=== PATIENT | female | born 1935 | race Caucasian/White ===

== ENCOUNTER 2018-01-10 08:11 | Day surgery (SDC) | payer MEDICARE, OTHER ==
[~2018-01-10] VITALS: Wt 66.7 kg
[~2018-01-10 08:11] MED LIST: AMLO5 PO; DOCU100; FERSU220EL PO; HYDR1TAB94 PO; LISI20 PO; LOSA50 PO; METR500 PO; MULVITMIND PO; NAPR500; NIFE30ER PO; NITR100 PO; OMEP20ER; OXYACE5T; POLY17UD PO; SULTRIDS PO
== END 2018-01-10 22:42 | disposition home or self-care (01) ==
LOC: ORSCMMR 08:11 → ORD 09:00 → ORSCMMR 09:00
PROVIDERS: Internal Medicine Gastroenterology
PROC: 0DB98ZX Excision of Duodenum, Via Natural or Artificial Opening Endoscopic, Diagnostic (ICD-10-PCS; principal; 2018-01-10 09:00)
PROC: 0DBL8ZX Excision of Transverse Colon, Via Natural or Artificial Opening Endoscopic, Diagnostic (ICD-10-PCS; principal; 2018-01-10 09:00)
PROC: 0DB48ZX Excision of Esophagogastric Junction, Via Natural or Artificial Opening Endoscopic, Diagnostic (ICD-10-PCS; principal; 2018-01-10 09:00)
PROC: 0DBH8ZX Excision of Cecum, Via Natural or Artificial Opening Endoscopic, Diagnostic (ICD-10-PCS; principal; 2018-01-10 09:00)
PROC: 0DB68ZX Excision of Stomach, Via Natural or Artificial Opening Endoscopic, Diagnostic (ICD-10-PCS; principal; 2018-01-10 09:00)
DX: E61.1 Iron deficiency (principal); K44.9 Diaphragmatic hernia without obstruction or gangrene; D12.3 Benign neoplasm of transverse colon; K57.30 Diverticulosis of large intestine without perforation or abscess without bleeding; R19.7 Diarrhea, unspecified; R10.31 Right lower quadrant pain; I10 Essential (primary) hypertension; Z85.038 Personal history of other malignant neoplasm of large intestine; G50.0 Trigeminal neuralgia; Z79.899 Other long term (current) drug therapy
CPT/HCPCS: 87081; J7030

== ENCOUNTER 2018-02-18 20:43 | Emergency (ER) | payer MEDICARE, OTHER ==
[~2018-02-18] VITALS: Ht 154.9 cm; Wt 63.5 kg
[2018-02-18] MEDS ORDERED: Percocet 5-3251 EACH PO (22:09)
== END 2018-02-18 22:21 | disposition home or self-care (01) ==
LOC: ER 20:43
DX: S22.31XA Fracture of one rib, right side, initial encounter for closed fracture (principal); I10 Essential (primary) hypertension; E11.9 Type 2 diabetes mellitus without complications; J44.9 Chronic obstructive pulmonary disease, unspecified; W01.0XXA Fall on same level from slipping, tripping and stumbling without subsequent striking against object, initial encounter; Z79.899 Other long term (current) drug therapy
CPT/HCPCS: 71046; 99283-25

== ENCOUNTER → 2018-12-10 | Outpatient (CLI) | payer MEDICARE, OTHER ==
[~2018-12-10] MED LIST changes: +ALPR.25 PO; +CEPH500; +Hydrocodone-Ap1 EA23 PO; +IMODIUM MULTI-1 EAC1 PO; +Percocet 5-3251 EACH PO
== END | disposition home or self-care (01) ==
LOC: PLD 07:48 → LAB SHORT 07:48
DX: L60.2 Onychogryphosis (principal); B35.1 Tinea unguium
CPT/HCPCS: 88305; 88312

== ENCOUNTER 2020-09-02 02:17 | Inpatient (IN) | payer MEDICARE, OTHER ==
[~2020-09-02] VITALS: Ht 167.6 cm; Wt 67.8 kg
[2020-09-02 02:32] LABS: PCO2 Arterial 49.7 mmHg (35-45); PO2 Arterial 101 mmHg (80-100); pH Blood Arterial 7.21 (7.35-7.45)
[2020-09-02 02:46] LABS: BASOPHILS ABSOLUTE AUTO 0.06 K/mm3 (0.00-0.23); BASOPHILS PERCENT AUTO 1 % (0-2); EOSINOPHILS ABSOLUTE AUTO 0.36 K/mm3 (0.00-0.68); EOSINOPHILS PERCENT AUTO 3 % (0-6); Hematocrit 49.6 % (33.0-51.0); Hemoglobin 16.4 g/dL (11.5-16.0); IMMATURE GRAN ABSOLUTE AUTO 0.06 K/mm3 (0.00-0.10); IMMATURE GRAN PERCENT AUTO 1 % (0-1); LYMPHOCYTES ABSOLUTE AUTO 3.84 K/mm3 (0.84-5.20); LYMPHOCYTES PERCENT AUTO 29 % (21-46); MONOCYTES ABSOLUTE AUTO 0.78 K/mm3 (0.16-1.47); MONOCYTES PERCENT AUTO 6 % (4-13); Mean Corpuscular HGB 31.2 pg (26.0-34.0); Mean Corpuscular HGB Conc 33.1 g/dL (31.5-36.5); Mean Corpuscular Volume 95 fL (80-100); Mean Platelet Volume 10.8 fL (9.1-12.4); NEUTROPHILS ABSOLUTE AUTO 8.11 K/mm3 (1.96-9.15); NEUTROPHILS PERCENT AUTO 61 % (41-73); Platelet Count 233 K/mm3 (150-400); RDW Standard Deviation 45.4 fL (35.1-46.3); Red Blood Cell Count 5.25 M/mm3 (3.80-5.20); White Blood Cell Count 13.21 K/mm3 (4.00-11.30)
[2020-09-02 03:08] LABS: Troponin I 0.101 ng/mL (0.000-0.040)
[2020-09-02 03:15] LABS: Alanine Aminotransfer (ALT/SGP 36 U/L (12-78); Albumin, Blood 3.6 g/dL (3.4-5.0); Albumin/Globulin Ratio 0.9 (0.8-1.8); Alk Phos 80 U/L (50-136); Anion Gap 8 mmol/L (6-16); Aspartate Aminotrans (AST/SGOT 78 U/L (12-37); Bilirubin, Total 1.1 mg/dL (0.1-1.0); Blood Urea Nitrogen 30 mg/dL (8-24); Bun/Creatinine Ratio 52.4 (12.0-20.0); CO2, Blood 20 mmol/L (21-32); Calcium, Blood 8.5 mg/dL (8.5-10.1); Chloride, Blood 102 mmol/L (98-108); Creatinine, Blood 0.57 mg/dL (0.40-1.00); Globulin, Blood 4.2 g/dL (2.2-4.0); Glomerular Filtration Rate >60 (60-); Glucose, Blood 232 mg/dL (70-99); Potassium, Blood 5.1 mmol/L (3.5-5.5); Sodium, Blood 130 mmol/L (136-145); Total Protein, Blood 7.8 g/dL (6.4-8.2)
[2020-09-02] MEDS ORDERED: LOPE2C PO (03:17)
[2020-09-02] MEDS ORDERED: ALPR.25 PO (03:17)
[2020-09-02] MEDS ORDERED: AMLO5 PO (03:17)
[2020-09-02] MEDS ORDERED: VIT1CAPS12 (03:19)
[2020-09-02] MEDS ORDERED: CHOLP PO (03:19)
[2020-09-02] MEDS ORDERED: OLME20 PO (03:19)
[2020-09-02] MEDS ORDERED: Vitamin B-121000 MCG PO (03:20)
[2020-09-02] MEDS ORDERED: ACET325 PO (03:21)
[2020-09-02 03:24] LABS: Influenza A, PCR Negative (NEGATIVE); Influenza B, PCR Negative (NEGATIVE); Resp Syncytial Virus, PCR Negative (NEGATIVE); SARS-Cov-2 (COVID-19) PCR, MMC Negative (NEGATIVE)
[2020-09-02 03:54] LABS: Source, Urine Catheter
[2020-09-02 04:00] LABS: Appearance, Urine Hazy (Clear); Bilirubin, Urine Neg (Neg); Blood, Urine 5+ (Neg); Color, Urine Amber (P-Yellow); Glucose Qualitative, Urine Neg (Neg); Ketones, Urine 1+ (Neg); Leukocyte Esterase, Urine 1+ (Neg); Nitrite, Urine Neg (Neg); Protein, Urine 4+ (Neg); Specific Gravity, Urine 1.025 (1.003-1.022); Urobilinogen, Urine NORM (Normal); pH, Urine 6.5 (5.0-8.0)
[2020-09-02 04:07] LABS: Red Blood Cells, Urine 0-2 /hpf (0-2); White Blood Cells, Urine 0-2 /hpf (0-5)
[2020-09-02 04:08] LABS: Amorphous Heavy (0-Heavy); Bacteria Few /hpf; Hyaline Casts 0-2 /lpf (0-2); Squamous Epithelial Cells Not Seen /hpf (Few)
--- NOTE | 2020-09-02 04:30 | NUR ---
ASSUMPTION OF CARE RECEIVED REPORT FROM IQRA FULLER FROM ED. PATIENT ARRIVED VIA GURNEY, 4 PERSON ASSISTED TO BED. BIPAP IN PLACE SETTING 07/05, FIO2 85%. SATS GREATER THAN 95%. PATIENT A/O, CONCERNED WITH BIPAP MASK NOT FITTING PROPERLY. RT ADJUSTED, PATIENT ALSO CONCERNED THAT SHE WASN'T RECEIVING ENOUGH AIR. READJUSTED MASK A FEW TIMES AND COACHED PATIENT TO BREATH NORMAL. PATIENT SOON BEGAN TO RELAX AND BREATH WITH BIPAP. SON TO BEDSIDE, EDUCATED ON VISITOR POLICY, SON VERBALIZED UNDERSTANDING. ORIENTED PATIENT TO ROOM AND CALL LIGHT, CALL LIGHT WITHIN REACH. WILL REVIEW ORDERS AND TREAT PRESCRIBED.
--- NOTE | 2020-09-02 06:17 | NUR ---
SHIFT SUMMARY PATIENT REMAINS ON BIPAP, SETTINGS 12/6 FIO2 DECREASED TO 75% WITH O2 SATS GREATER THAN 95%. PATIENT TOLERATING WELL. BLOOD PRESSURE STABLE. CALL LIGHT IN REACH.
[2020-09-02] MEDS ORDERED: SYSTANE BALANCE10 ML BOTHEYES (06:37)
[2020-09-02] MEDS ORDERED: VITAMIN D31000 UNI1 PO (06:38)
[2020-09-02] MEDS ORDERED: VIT1CAPS12 PO (06:38)
--- NOTE | 2020-09-02 07:30 | NUR ---
PT RECEIVED FROM JONNY MAYERS. PT SITTING IN BED ON BIPAP, MASK SLIGHTLY ASKEW. ADJUSTED,TOLERATING WITH A BIT OF ANXIETY, ENCOURAGED TO BREATHE NORMALLY. ORAL CARE DONE WITH OXYGEN VIA NASAL CANNULA, SATS DROPPED TO 90%, WORK OF BREATHING INCREASED AND TACHYPNIC. RETURNED TO BIPAP. SATS RETURN TO >95%. WILL WORK WITH PATIENT AND PHYSICIANS FOR CARE TODAY.
[2020-09-02 10:36] LABS: BASOPHILS ABSOLUTE AUTO 0.02 K/mm3 (0.00-0.23); BASOPHILS PERCENT AUTO 0 % (0-2); EOSINOPHILS PERCENT AUTO 0 % (0-6); Hematocrit 47.1 % (33.0-51.0); Hemoglobin 15.9 g/dL (11.5-16.0); IMMATURE GRAN ABSOLUTE AUTO 0.05 K/mm3 (0.00-0.10); IMMATURE GRAN PERCENT AUTO 0 % (0-1); LYMPHOCYTES ABSOLUTE AUTO 0.29 K/mm3 (0.84-5.20); LYMPHOCYTES PERCENT AUTO 2 % (21-46); MONOCYTES ABSOLUTE AUTO 0.34 K/mm3 (0.16-1.47); MONOCYTES PERCENT AUTO 2 % (4-13); Mean Corpuscular HGB 31.5 pg (26.0-34.0); Mean Corpuscular HGB Conc 33.8 g/dL (31.5-36.5); Mean Corpuscular Volume 94 fL (80-100); Mean Platelet Volume 10.3 fL (9.1-12.4); NEUTROPHILS ABSOLUTE AUTO 14.89 K/mm3 (1.96-9.15); NEUTROPHILS PERCENT AUTO 96 % (41-73); Platelet Count 226 K/mm3 (150-400); RDW Standard Deviation 44.2 fL (35.1-46.3); Red Blood Cell Count 5.04 M/mm3 (3.80-5.20); White Blood Cell Count 15.59 K/mm3 (4.00-11.30)
[2020-09-02 10:53] LABS: Alanine Aminotransfer (ALT/SGP 37 U/L (12-78); Albumin, Blood 3.4 g/dL (3.4-5.0); Albumin/Globulin Ratio 0.9 (0.8-1.8); Alk Phos 70 U/L (50-136); Anion Gap 15 mmol/L (6-16); Aspartate Aminotrans (AST/SGOT 65 U/L (12-37); Bilirubin, Total 1.3 mg/dL (0.1-1.0); Blood Urea Nitrogen 28 mg/dL (8-24); Bun/Creatinine Ratio 39.5 (12.0-20.0); CO2, Blood 20 mmol/L (21-32); Calcium, Blood 8.4 mg/dL (8.5-10.1); Chloride, Blood 102 mmol/L (98-108); Creatinine, Blood 0.71 mg/dL (0.40-1.00); Globulin, Blood 3.7 g/dL (2.2-4.0); Glomerular Filtration Rate >60 (60-); Glucose, Blood 177 mg/dL (70-99); Potassium, Blood 3.6 mmol/L (3.5-5.5); Sodium, Blood 137 mmol/L (136-145); Total Protein, Blood 7.1 g/dL (6.4-8.2); Troponin I 0.225 ng/mL (0.000-0.040)
--- NOTE | 2020-09-02 12:29 | NUR ---
Echocardiogram performed by Kera Baldwin under my supervision.
[2020-09-02 14:49] LABS: PCO2 Arterial 28.5 mmHg (35-45); PO2 Arterial 112 mmHg (80-100); pH Blood Arterial 7.43 (7.35-7.45)
--- NOTE | 2020-09-02 15:33 | NUR ---
IN TO SPEAK WITH PATIENT AND SON. SHE WAS IN EARLIER AND ORDERED AN ABG,BLOOD CULTURES AND ANTIBIOTICS. WILL BE HEADED TO CT FOR CHEST VIEW MOMENTARILY. IN CONSULT.
--- NOTE | 2020-09-02 16:17 | NUR ---
IN WITH PATIENT WE RETURN FROM CT. PT DOING REALLY WELL, MOVING TO 2L/NC. SON IN THE ROOM,PATIENT ABLE TO ASK QUESTIONS AND DISCUSS CONCERNS.
--- NOTE | 2020-09-02 18:12 | NUR ---
HAS DONE REALLY WELL THIS SHIFT. SHE WAS PLACED ON NASAL CANNULA AROUND 1500 TODAY @ 3L FOR SATS >95% BEING TITRATED DOWN SINCE NOON WITH RESP. THERAPY. SHE HAS ASKED APPROPRIATE QUESTIONS AND HAD A DINNER TRAY WITHOUT ANY PROBLEMS. HER SON HAS BEEN WITH HER MOST OF THE AFTERNOON, SHE TOLERATED ABG, BLOOD CULTURES AND CT OF THE CHEST WITHOUT ANY PROBLEMS. SHE IS SCHEDULED TO RECEIVE ANTIBIOTICS LATER TONIGHT AND ENCOURAGED TO GET OUT OF BED AND MOVE TO THE CHAIR. WILL REPORT TO NEXT SHIFT WHEN AVAILABLE.
[2020-09-02 20:08] LABS: Troponin I 0.164 ng/mL (0.000-0.040)
[2020-09-02 20:22] LABS: Creatine Kinase MB 5.9 ng/mL (0.0-3.6)
--- NOTE | 2020-09-03 | NUR ---
REASSESSMENT NO ACUTE CHANGES FROM INITIAL ASSESSMENT. PATIENT WITH EYES CLOSED, EASILY AWAKENS. DENIED DISCOMFORTS OR NEEDS. VITALS STABLE. MEDICATED ORDERED. CALL LIGHT IN REACH.
[2020-09-03 03:50] LABS: BASOPHILS ABSOLUTE AUTO 0.01 K/mm3 (0.00-0.23); BASOPHILS PERCENT AUTO 0 % (0-2); EOSINOPHILS ABSOLUTE AUTO 0.03 K/mm3 (0.00-0.68); EOSINOPHILS PERCENT AUTO 0 % (0-6); Hematocrit 40.5 % (33.0-51.0); Hemoglobin 13.5 g/dL (11.5-16.0); IMMATURE GRAN ABSOLUTE AUTO 0.03 K/mm3 (0.00-0.10); IMMATURE GRAN PERCENT AUTO 0 % (0-1); LYMPHOCYTES ABSOLUTE AUTO 1.13 K/mm3 (0.84-5.20); LYMPHOCYTES PERCENT AUTO 8 % (21-46); MONOCYTES ABSOLUTE AUTO 0.93 K/mm3 (0.16-1.47); MONOCYTES PERCENT AUTO 7 % (4-13); Mean Corpuscular HGB 31.1 pg (26.0-34.0); Mean Corpuscular HGB Conc 33.3 g/dL (31.5-36.5); Mean Corpuscular Volume 93 fL (80-100); Mean Platelet Volume 10.5 fL (9.1-12.4); NEUTROPHILS ABSOLUTE AUTO 11.54 K/mm3 (1.96-9.15); NEUTROPHILS PERCENT AUTO 84 % (41-73); Platelet Count 198 K/mm3 (150-400); RDW Coefficient Variation 13.2 % (11.7-14.2); RDW Standard Deviation 45.4 fL (35.1-46.3); Red Blood Cell Count 4.34 M/mm3 (3.80-5.20); White Blood Cell Count 13.67 K/mm3 (4.00-11.30)
--- NOTE | 2020-09-03 04:00 | NUR ---
REASSESSMENT NO ACUTE CHANGES FROM PREVIOUS ASSESSMENT. PATIENT DENIES NEEDS OR DISCOMFORTS. VITALS STABLE, 2L [address]ACE WITH SATS AT 94-95%. TOBIAS CATHETER DRAINING CLEAR, YELLOW URINE. CALL LIGHT IN REACH.
[2020-09-03 04:10] LABS: Anion Gap 7 mmol/L (6-16); Blood Urea Nitrogen 36 mg/dL (8-24); Bun/Creatinine Ratio 42.4 (12.0-20.0); CO2, Blood 25 mmol/L (21-32); Calcium, Blood 8.2 mg/dL (8.5-10.1); Chloride, Blood 105 mmol/L (98-108); Creatinine, Blood 0.85 mg/dL (0.40-1.00); Glomerular Filtration Rate >60 (60-); Glucose, Blood 110 mg/dL (70-99); Sodium, Blood 137 mmol/L (136-145)
--- NOTE | 2020-09-03 06:06 | NUR ---
SHIFT SUMMARY PATIENT RESTED COMFORTABLY THROUGH NIGHT. NO S/S OF DISTRESS. REMAINED ON 2L O2 VIA NC WITH STABLE VITALS. TOBIAS CATHETER REMAINED PATENT AND DRAINED CLEAR YELLOW URINE. NO ACUTE CHANGES THROUGH NIGHT. WILL CONTINUE TO MONITOR AND REPORT TO ONCOMING RN.
--- NOTE | 2020-09-03 09:20 | NUR ---
CARE ASSUMED OF PT AT 0700. PT AWAKE RESTING IN BED W/O COMPLAINTS. PT ASSISTED TO CHAIR FOR BREAKFAST. SATS >90% ON 2L O2 VIA N/C. PT HYPOTENSIVE W MAP >65. LASIX GIVEN PER DR STOCKTON. HTN MEDS HELD D/T LOW BP; DR STOCKTON NOTIFIED. WILL RE-EVALUATE LATER TODAY. DR STOCKTON IN TO SEE PT THIS AM; PT NOW MED FLOOR STATUS.
--- NOTE | 2020-09-03 10:27 | NUR ---
O2 REMOVED. SATS 93% ON RA. WILL CONT TO MONITOR. PT'S SON GIVEN UPDATE W PT'S APPROVAL.
--- NOTE | 2020-09-03 14:17 | NUR ---
CARE COORDINATION REFERRAL - ADMIT: 09/02/20 DISCHARGE: DX: SOB, ACUTE DIASTOLIC HEART DISEASE CC: KWILCOX ALICIA CALL: RESIDENCE: [facility] CAREGIVER: DORINDA MARI AND GWEN BEY AND DARIAN TRAORE, CHILD, BALAJI BEY, CHILD, ALBAN GUERRA, CHILD, DX: AORTIC STENOSIS, HTN, COLON CANCER, SEE LIST DME: NONE CCM: REFERRAL- 04/02/20 [facility] - [facility] SUMMARY: 09/03/20- PER CHART REVIEW, PT HAS BEEN TAKEN OFF BIPAP AND IS DOING WELL ON 2L OXYGEN. PT WILL BE MOVED TO MEDICAL FLOOR. NO EST ETA FOR D/C AT THIS TIME. -CLIFFORD
--- NOTE | 2020-09-03 14:36 | NUR ---
PT TRANSFERED TO ROOM 309 IN STABLE CONDITION.
--- NOTE | 2020-09-03 17:03 | NUR ---
Attempted to meet with pt, she was using the restroom. Will come back. -lubna
--- NOTE | 2020-09-03 18:54 | NUR ---
Shift Summary Received report from Traci ICU-RN. Patient arrived to unit @ 1400 via bed. A/Ox3, pleasant and cooperative. SBA c FWW to BS. Luz catheter still patent and draining clear yellow fluids. Patient denies pain. Updated daughter on patient status. Plan is to discharge back to [facility] tomorrow. On RA, denies shortness of breath, nausea, diarrhea. Refused Cholestyramine tonight. No acute changes, WCTM and report to oncoming RN.
--- NOTE | 2020-09-04 03:45 | NUR ---
PATIENT HAD DIFFICULTY GETTING COMFORTABLE OVERNIGHT. CHRONIC BACK PAIN RESPONDED WELL TO TYLENOL AND A K PAD. BP AT HS WAS 131/80, SO BEDTIME DOSE OF IV LASIX WAS GIVEN WITH GOOD RESULT. COLETTE IS ALERT, ORIENTED AND VERY PLEASANT TO WORK WITH. VERY MOTIVATED TO GO HOME.
[2020-09-04 05:18] LABS: Hematocrit 40.3 % (33.0-51.0); Hemoglobin 13.2 g/dL (11.5-16.0); Mean Corpuscular HGB 30.5 pg (26.0-34.0); Mean Corpuscular HGB Conc 32.8 g/dL (31.5-36.5); Mean Corpuscular Volume 93 fL (80-100); Mean Platelet Volume 10.9 fL (9.1-12.4); Platelet Count 206 K/mm3 (150-400); RDW Coefficient Variation 13.2 % (11.7-14.2); RDW Standard Deviation 45.4 fL (35.1-46.3); Red Blood Cell Count 4.33 M/mm3 (3.80-5.20)
[2020-09-04 05:47] LABS: Anion Gap 8 mmol/L (6-16); Blood Urea Nitrogen 40 mg/dL (8-24); CO2, Blood 24 mmol/L (21-32); Calcium, Blood 8.4 mg/dL (8.5-10.1); Chloride, Blood 104 mmol/L (98-108); Creatinine, Blood 0.76 mg/dL (0.40-1.00); Glomerular Filtration Rate >60 (60-); Glucose, Blood 103 mg/dL (70-99); Potassium, Blood 3.9 mmol/L (3.5-5.5); Sodium, Blood 136 mmol/L (136-145)
[2020-09-04] MEDS ORDERED: Lopressor 25 mg25 MG PO (18:31)
[2020-09-04] MEDS ORDERED: OLME20 PO (19:01)
--- NOTE | 2020-09-04 19:23 | NUR ---
PT WAS DISCHARGED HOME WITH BELONGINGS AND FAMILY AT SIDE. PT IV'S WERE DC'S AND WITHIN NORMAL LIMITS. PATIENT MADE NO COMPLAINT OF PAIN, DIZZINESS OR SOB AT THE TIME OF DC. PT WAS EDUCATED ON FOLLOW UP APPOINTMENTS NEEDED AFTER DISCHARGE AN DMEDICATION CHANGES NEEDED.
== END 2020-09-04 19:31 | disposition home or self-care (01) | DRG 280 ==
LOC: ER 02:17 → MEDS 03:44 → ICUW 03:44 → MEDS 09-03 14:00
PROVIDERS: Emergency Medicine; Family Medicine; Internal Medicine Critical Care Medicine; Student in an Organized Health Care Education/Training Program; ADMIT Internal Medicine
DX: I11.0 Hypertensive heart disease with heart failure (principal); I50.31 Acute diastolic (congestive) heart failure; I21.A1 Myocardial infarction type 2; J96.01 Acute respiratory failure with hypoxia; J81.0 Acute pulmonary edema; I16.1 Hypertensive emergency; R65.10 Systemic inflammatory response syndrome (SIRS) of non-infectious origin without acute organ dysfunction; I08.0 Rheumatic disorders of both mitral and aortic valves; Z20.822 Contact with and (suspected) exposure to COVID-19
CPT/HCPCS: 0241U; 36415; 36600; 51702; 71045; 71250; 80048; 80053; 81001; 82550; 82553; 82803; 83880; 84484; 85025; 85027; 87040; 87086; 93005; 93010; 93308; 93321; 94644; 94660; 96365-59; 96367-59; 96368; 96375-59; 97116; 97161; 97165; 97530; 99285-25; A9270; J0456; J0696; J1100; J1650; J1940; J7050

== ENCOUNTER 2020-09-07 20:53 | Inpatient (IN) | payer MEDICARE, OTHER ==
[~2020-09-07] VITALS: Ht 154.9 cm; Wt 66.6 kg
[~2020-09-07 20:53] MED LIST changes: +ACET325 PO; +CHOLP PO; +LOPE2C PO; +Lopressor 25 mg25 MG PO; +OLME20 PO; +SYSTANE BALANCE10 ML BOTHEYES; +VIT1CAPS12; +VIT1CAPS12 PO; +VITAMIN D31000 UNI1 PO; +Vitamin B-121000 MCG PO
[2020-09-07 21:15] LABS: Calcium, Ionized (POC) 1.13 mmol/L (1.10-1.46); Chloride (POC) 102 mmol/L (98-108); Creatinine (POC) 0.7 mg/dL (0.6-1.0); Glucose (ISTAT POC) 147 mg/dL (70-99); Hemoglobin (POC) 14.6 g/dL (12.0-16.0); Potassium (POC) 4.4 mmol/L (3.5-5.5); Sodium (POC) 133 mmol/L (135-148); Total CO2 (POC) 23 mmol/L (21-32)
[2020-09-07 21:17] LABS: BASOPHILS ABSOLUTE AUTO 0.04 K/mm3 (0.00-0.23); BASOPHILS PERCENT AUTO 1 % (0-2); EOSINOPHILS ABSOLUTE AUTO 0.32 K/mm3 (0.00-0.68); EOSINOPHILS PERCENT AUTO 4 % (0-6); Hematocrit 42.2 % (33.0-51.0); Hemoglobin 13.8 g/dL (11.5-16.0); IMMATURE GRAN ABSOLUTE AUTO 0.04 K/mm3 (0.00-0.10); IMMATURE GRAN PERCENT AUTO 1 % (0-1); LYMPHOCYTES ABSOLUTE AUTO 1.33 K/mm3 (0.84-5.20); LYMPHOCYTES PERCENT AUTO 17 % (21-46); MONOCYTES ABSOLUTE AUTO 0.75 K/mm3 (0.16-1.47); MONOCYTES PERCENT AUTO 10 % (4-13); Mean Corpuscular HGB 30.7 pg (26.0-34.0); Mean Corpuscular HGB Conc 32.7 g/dL (31.5-36.5); Mean Corpuscular Volume 94 fL (80-100); Mean Platelet Volume 10.3 fL (9.1-12.4); NEUTROPHILS ABSOLUTE AUTO 5.44 K/mm3 (1.96-9.15); NEUTROPHILS PERCENT AUTO 69 % (41-73); Platelet Count 255 K/mm3 (150-400); RDW Standard Deviation 44.8 fL (35.1-46.3); Red Blood Cell Count 4.49 M/mm3 (3.80-5.20); White Blood Cell Count 7.92 K/mm3 (4.00-11.30)
[2020-09-07 21:41] LABS: Alanine Aminotransfer (ALT/SGP 43 U/L (12-78); Albumin, Blood 3.5 g/dL (3.4-5.0); Albumin/Globulin Ratio 0.9 (0.8-1.8); Alk Phos 65 U/L (50-136); Anion Gap 7 mmol/L (6-16); Aspartate Aminotrans (AST/SGOT 29 U/L (12-37); Bilirubin, Total 0.5 mg/dL (0.1-1.0); Blood Urea Nitrogen 22 mg/dL (8-24); Bun/Creatinine Ratio 29.9 (12.0-20.0); CO2, Blood 23 mmol/L (21-32); Calcium, Blood 8.5 mg/dL (8.5-10.1); Chloride, Blood 105 mmol/L (98-108); Creatinine, Blood 0.74 mg/dL (0.40-1.00); Globulin, Blood 3.7 g/dL (2.2-4.0); Glomerular Filtration Rate >60 (60-); Glucose, Blood 145 mg/dL (70-99); Potassium, Blood 4.3 mmol/L (3.5-5.5); Sodium, Blood 135 mmol/L (136-145); Total Protein, Blood 7.2 g/dL (6.4-8.2); Troponin I 0.025 ng/mL (0.000-0.040)
[2020-09-07 21:44] LABS: PCO2 Arterial 33.8 mmHg (35-45); PO2 Arterial 69.2 mmHg (80-100); pH Blood Arterial 7.39 (7.35-7.45)
[2020-09-07] MEDS ORDERED: METO25 PO (23:05)
[2020-09-07 23:08] LABS: Source, Urine Catheter
[2020-09-07 23:17] LABS: Bilirubin, Urine Neg (Neg); Blood, Urine 3+ (Neg); Glucose Qualitative, Urine Neg (Neg); Ketones, Urine Neg (Neg); Leukocyte Esterase, Urine Neg (Neg); Nitrite, Urine Neg (Neg); Protein, Urine 2+ (Neg); Specific Gravity, Urine 1.025 (1.003-1.022); Urobilinogen, Urine NORM (Normal)
[2020-09-07 23:23] LABS: Appearance, Urine Clear (Clear); Color, Urine Yellow (P-Yellow)
[2020-09-07 23:24] LABS: Bacteria Few /hpf; Hyaline Casts 0-2 /lpf (0-2); Red Blood Cells, Urine 0-2 /hpf (0-2); Squamous Epithelial Cells Not Seen /hpf (Few); White Blood Cells, Urine 0-2 /hpf (0-5)
[2020-09-08 03:28] LABS: BASOPHILS ABSOLUTE AUTO 0.04 K/mm3 (0.00-0.23); BASOPHILS PERCENT AUTO 1 % (0-2); EOSINOPHILS ABSOLUTE AUTO 0.22 K/mm3 (0.00-0.68); EOSINOPHILS PERCENT AUTO 3 % (0-6); Hemoglobin 12.5 g/dL (11.5-16.0); IMMATURE GRAN ABSOLUTE AUTO 0.02 K/mm3 (0.00-0.10); IMMATURE GRAN PERCENT AUTO 0 % (0-1); LYMPHOCYTES ABSOLUTE AUTO 1.33 K/mm3 (0.84-5.20); LYMPHOCYTES PERCENT AUTO 19 % (21-46); MONOCYTES ABSOLUTE AUTO 0.65 K/mm3 (0.16-1.47); MONOCYTES PERCENT AUTO 9 % (4-13); Mean Corpuscular HGB 30.3 pg (26.0-34.0); Mean Corpuscular HGB Conc 32.1 g/dL (31.5-36.5); Mean Corpuscular Volume 95 fL (80-100); Mean Platelet Volume 10.4 fL (9.1-12.4); NEUTROPHILS ABSOLUTE AUTO 4.62 K/mm3 (1.96-9.15); NEUTROPHILS PERCENT AUTO 67 % (41-73); Platelet Count 219 K/mm3 (150-400); RDW Standard Deviation 45.1 fL (35.1-46.3); Red Blood Cell Count 4.12 M/mm3 (3.80-5.20); White Blood Cell Count 6.88 K/mm3 (4.00-11.30)
[2020-09-08 03:46] LABS: Anion Gap 6 mmol/L (6-16); Blood Urea Nitrogen 23 mg/dL (8-24); Bun/Creatinine Ratio 30.5 (12.0-20.0); CO2, Blood 25 mmol/L (21-32); Calcium, Blood 8.4 mg/dL (8.5-10.1); Chloride, Blood 107 mmol/L (98-108); Creatinine, Blood 0.75 mg/dL (0.40-1.00); Glomerular Filtration Rate >60 (60-); Glucose, Blood 115 mg/dL (70-99); Potassium, Blood 4.5 mmol/L (3.5-5.5); Sodium, Blood 138 mmol/L (136-145); Troponin I 0.245 ng/mL (0.000-0.040)
--- NOTE | 2020-09-08 14:33 | NUR ---
CARE COORDINATION REFERRAL - ADMIT: 09/07/20 DISCHARGE: DX: ACUTE RESP. FAILURE W/ HYPOXIA CC: KWILCOX ADMIT: 09/02/20 DISCHARGE:09/04/20 DX: SOB, ACUTE DIASTOLIC HEART DISEASE ALICIA CALL: [facility] RESIDENCE: [facility] CAREGIVER: DORINDA GUERRA AND GWEN SOTERO AND DARIAN TRAORE, CHILD, BALAJI BEY, CHILD, ALBAN GUERRA, CHILD, DX: AORTIC STENOSIS, HTN, CERVICAL RADICULOPATHY, SEE LIST DME: NONE CCM: REFERRAL- 04/02/20 HOME HEALTH: [facility] - 2017 SUMMARY: ADMIT: 09/07/20 09/08/20- PER CHART REVIEW WITH DR. VALENZUELA, PT IS GETTING LASIX TO HELP RID HER OF EXCESS FLUID. SHE HAS BEEN PLACED ON A CARDIAC DIET AND WILL BE MOVED FROM ER HOLD/ICU TO MED/TELE. -CLIFFORD
--- NOTE | 2020-09-08 17:49 | NUR ---
ADMISSION AND SHIFT SUMMARY PT ARRIVED TO UNIT @ APPROX 1620 BY GURNEY TO ROOM 342. PT WAS ABLE TO STAND AND AMBULATE TO THE BED WITH MINIMAL ASSISTANCE. PT IS ON 2 L/MIN O2 VIA NC, THIS IS NOT BASELINE FOR PT. NO COMPLAINTS OF PAIN OR DISTRESS @ THIS TIME. SKIN APPEARS INTACT. TOBIAS IN PLACE PATENT AND DRAINING CLEAR YELLOW URINE. DAUGHTER IS @ BEDSIDE. ADMISSION PROCESS COMPLETED. PT AND FAMILY EDUCATED REGARDING CALL SYSTEM.
[2020-09-09 05:18] LABS: BASOPHILS ABSOLUTE AUTO 0.02 K/mm3 (0.00-0.23); BASOPHILS PERCENT AUTO 0 % (0-2); EOSINOPHILS ABSOLUTE AUTO 0.26 K/mm3 (0.00-0.68); EOSINOPHILS PERCENT AUTO 4 % (0-6); Hematocrit 39.6 % (33.0-51.0); Hemoglobin 12.9 g/dL (11.5-16.0); IMMATURE GRAN ABSOLUTE AUTO 0.03 K/mm3 (0.00-0.10); IMMATURE GRAN PERCENT AUTO 1 % (0-1); LYMPHOCYTES ABSOLUTE AUTO 1.42 K/mm3 (0.84-5.20); LYMPHOCYTES PERCENT AUTO 23 % (21-46); MONOCYTES ABSOLUTE AUTO 0.66 K/mm3 (0.16-1.47); MONOCYTES PERCENT AUTO 11 % (4-13); Mean Corpuscular HGB 30.6 pg (26.0-34.0); Mean Corpuscular HGB Conc 32.6 g/dL (31.5-36.5); Mean Corpuscular Volume 94 fL (80-100); Mean Platelet Volume 10.4 fL (9.1-12.4); NEUTROPHILS ABSOLUTE AUTO 3.85 K/mm3 (1.96-9.15); NEUTROPHILS PERCENT AUTO 62 % (41-73); Platelet Count 233 K/mm3 (150-400); RDW Coefficient Variation 13.1 % (11.7-14.2); RDW Standard Deviation 44.9 fL (35.1-46.3); Red Blood Cell Count 4.21 M/mm3 (3.80-5.20); White Blood Cell Count 6.24 K/mm3 (4.00-11.30)
[2020-09-09 05:42] LABS: Alanine Aminotransfer (ALT/SGP 38 U/L (12-78); Albumin/Globulin Ratio 0.9 (0.8-1.8); Alk Phos 58 U/L (50-136); Anion Gap 7 mmol/L (6-16); Aspartate Aminotrans (AST/SGOT 29 U/L (12-37); Bilirubin, Total 0.7 mg/dL (0.1-1.0); Blood Urea Nitrogen 20 mg/dL (8-24); Bun/Creatinine Ratio 31.2 (12.0-20.0); CO2, Blood 23 mmol/L (21-32); Calcium, Blood 8.5 mg/dL (8.5-10.1); Chloride, Blood 107 mmol/L (98-108); Creatinine, Blood 0.64 mg/dL (0.40-1.00); Globulin, Blood 3.2 g/dL (2.2-4.0); Glomerular Filtration Rate >60 (60-); Glucose, Blood 94 mg/dL (70-99); Magnesium, Blood 2.2 mg/dL (1.6-2.4); Phosphorus, Blood 2.9 mg/dL (2.5-4.9); Potassium, Blood 4.3 mmol/L (3.5-5.5); Sodium, Blood 137 mmol/L (136-145); Total Protein, Blood 6.2 g/dL (6.4-8.2)
--- NOTE | 2020-09-09 06:07 | NUR ---
PT AWOKE MOMENTARILY AGO W/COMPLAINT OF NEEDING XANAX FOR INABILTY TO SLEEP. SHE'S PREVIOUSLY APPEARED ASLEEP DURING PT ROUNDING BUT PERHAPS SHE WAS JUST RESTING EYES. I JUST WENT TO OFFER PT PRN XANAX THOUGH BUT SHE WAS FAST ASLEEP AND REMAINED SO W/ATTEMPT TO WAKE HER. WILL REEVALUATE AND LET HER REST.
--- NOTE | 2020-09-09 06:45 | NUR ---
SUMMARY: A/OX4, CALLS APPROPRIATELY AND PLEASANT/COOPERATIVE W/CARE. SHE'S SBA W/FWW TO TOILET AND HAS TOBIAS PATENT/DRAINING. PT HAS CHRONIC DIARRHEA R/T HX COLON CANCER. PT REPORTS BUTTOCKS FEELING RAW BUT NO EXCORIATION OR SBD OBSERVED. BARRIER CREAM APPLIDE FOR SKIN PROTECTION AND IMPROVED COMFORT. LS CLEAR AND SPO2 WNL ON RA. VERY MILD SOB OBSERVED W/EXERTION BUT RECOVERS AT REST. SHE'S DENIED ALL COMPLAINTS T/O NOCTE BUT ALERTED STAFF AT 0500 OF NEED FOR XANAX FOR DIFFICULTY SLEEPING. SHE APPEARED ASLEEP DURING ROUNDING BUT ADMITTED SHE SHOULD'VE REQUESTED MED AT HS RX'D. WILL DISCUSS GETTING MED FREQUENCY CHANGED SO SHE COULD POSSIBLY RECIEVE IT DURING DAYTIME PRN WELL. NO ACUTE CHANGES, VSS/AFEBRILE. WCTM AND REPORT TO DAY RN. EARLIER IN SHIFT AND WAS WILL DISCUSS GETTING PRN XANAX ORDERED CHANGED.
--- NOTE | 2020-09-09 16:55 | NUR ---
SHIFT SUMMARY NO ACUTE CHANGES T/O SHIFT, A&Ox4, CALM AND COOPERATIVE T/O SHIFT. VITALS REMAIN STABLE T/O SHIFT, PT DENIES SOB. PT WAS TAKEN OFF O2 AFTER HOME O2 EVAL WAS COMPLETED. PT DOES NOT QUALIFY FOR HOME O2 BECAUSE SHE REMAINED ABOVE 90% DURING EXERTION ON RA. PT IS SATING 95% ON RA CURRENTLY. PT COMPLAINED OF OCCASIONAL COUGH T/O THE NIGHT, PROVIDER WAS NOTIFIED AND NO FURTHER ACTION DONE AT THIS TIME. TEZ ORDERED FOR PT, PT TAKES THIS MED AFTER LUNCH AT HOME AND STATED IT HELPS WITH HER CHRONIC DIARRHEA. NO LOOSE STOOLS THIS SHIFT. PT IS STILL ON FLUID RESTRICTED DIET. TOBIAS PATENT AND DRAINING.SHE IS CURRENTLY SITTING IN BED VISITING WITH HER DAUGHTER, CALL LIGHT IS WITHIN REACH.
--- NOTE | 2020-09-10 04:50 | NUR ---
PT A/O X4. SLEPT WELL TONIGHT. CONTINUES TO BE ON ROOM AIR MAINTAINING GOOD O2 SAT. SOME SOB WITH EXERTION. SR IN THE 90'S PER LEAN ENGINEER. AMBULATES WITH 1 ASSIST WITH FWW. VSS, NO ACUTE CHANGES.
--- NOTE | 2020-09-10 10:24 | NUR ---
Echocardiogram using 0.45ml of Definity contrast performed.
--- NOTE | 2020-09-10 15:37 | NUR ---
SPOKE TO RN AT [facility] AND SHE STATES THAT PT NEEDS 2 COVID TESTS 24 HRS APART IN ORDER TO COME BACK. EVIDENTLY THEY DON'T ACCEPT PTS BACK ON THE WEEKENDS. CALLED DR HUBBARD TO CONFIRM IF DISCHARGE DATE IS LIKELY TOMORROW, HE SAYS IT WILL BE TOMORROW IF STRESS TEST NEGATIVE. CALLED RASHEEDA BACK AT 1530 AND NURSE IS ALREADY GONE FOR THE DAY. THEY ARE EVIDENTALLY WAITING TO HEAR BACK FROM THEIR CORPORATE IF THEY REALLY NEED TWO SWABS OR IF ONE WILL DO. IF TWO SWABS ARE MANDATORY, THEN THE EARLIEST ONE COULD BE DONE AND READ IS 4PM TODAY AND TOMORROW WOULD HAVE TO BE DONE AT 4PM AGAIN, AND THE NURSE IS ALREADY GONE FOR THE DAY BY THEN TOMORROW. THEY WILL CONTACT US IN THE MORNING TO SEE IF IT IS ONLY NECESSARY TO DO ONE. THEY ADVISE TO HOLD OFF ON A COVID TEST UNTIL TOMORROW. DR HUBBARD CALLED AND UPDATED
--- NOTE | 2020-09-10 16:09 | NUR ---
09/10/20 Met with Ivana and daughter Vickie in the patient room today. Discussed returning home to [facility] Monday after Stress test is complete. Would like Home health services. Patient choice was [facility]. Called Debbie at [facility], they will accept Ivana back late Monday with a rapid covid test- negative. Son can transport her back to [facility]. Call Debbie in the afternoon once stress results are back. cp
--- NOTE | 2020-09-10 19:07 | NUR ---
SHIFT SUMMARY COLETTE COMPLAINED OF PAIN THIS SHIFT FOR WHICH A HEAT PAD WORKED WELL. JATINDER MARTINS'Jakub AT 1830. NO BM THIS SHIFT. CARDIAC CONSULT CALLED, DR PEDRAZA CAME TO BS. STRESS TEST ORDERED, FIRST PART DONE THIS AFTERNOON, SECOND PART TO BE DONE AT 0730 TOMORROW. FLUID RESTRICTION MAINTAINED TODAY. SPOKE TO [facility] ABOUT COVID REQUIREMENTS, SEE PREVIOUS NOTE. AO1 TO BR WITH WALKER, CALLS APPROPRIATELY. ACCIDENTALLY PULLED PIV, REPLACED WITH ANOTHER WHICH SHE ALSO ACCIDENTALLY PULLED. HANDED OVER TO TRANSLITERATOR TO REPLACE. TOOK MEDS PRESCRIBED. CALL LIGHT IN REACH, FREQUENT CHECKS PERFORMED.
--- NOTE | 2020-09-11 04:04 | NUR ---
SHIFT SUMMARY PATIENT HAD NO ACUTE CHANGES OBSERVED. AXOX 3 AND SBA TO BSC. FLUID RESTRICTION 1,000 mL. TWX OPERATOR REPORTS NSR 90. VSS/AFEBRILE. DENIES PAIN, SOB, AND N/V. NPO>01:00. CHARGE NURSE NOTIFIED TO REPLACE PIV. STRESS TEST IN AM. XANAX PO 0.25MG GIVEN FOR INSOMNIA AND TYLENOL FOR BACK PAIN X ONE. PATIENT ABLE TO SLEEP MOST OF THE SHIFT. CALL LIGHT IN REACH. BED IN LOWEST POSITION. WILL CONTINUE TO MONITOR UNTIL DAY SHIFT NURSE ASSUMES CARE.
[2020-09-11 05:32] LABS: BASOPHILS ABSOLUTE AUTO 0.03 K/mm3 (0.00-0.23); BASOPHILS PERCENT AUTO 1 % (0-2); EOSINOPHILS ABSOLUTE AUTO 0.21 K/mm3 (0.00-0.68); EOSINOPHILS PERCENT AUTO 4 % (0-6); Hematocrit 37.8 % (33.0-51.0); Hemoglobin 12.5 g/dL (11.5-16.0); IMMATURE GRAN ABSOLUTE AUTO 0.02 K/mm3 (0.00-0.10); IMMATURE GRAN PERCENT AUTO 0 % (0-1); LYMPHOCYTES ABSOLUTE AUTO 1.41 K/mm3 (0.84-5.20); LYMPHOCYTES PERCENT AUTO 29 % (21-46); MONOCYTES PERCENT AUTO 12 % (4-13); Mean Corpuscular HGB 30.8 pg (26.0-34.0); Mean Corpuscular HGB Conc 33.1 g/dL (31.5-36.5); Mean Corpuscular Volume 93 fL (80-100); Mean Platelet Volume 10.1 fL (9.1-12.4); NEUTROPHILS ABSOLUTE AUTO 2.62 K/mm3 (1.96-9.15); NEUTROPHILS PERCENT AUTO 54 % (41-73); Platelet Count 237 K/mm3 (150-400); RDW Coefficient Variation 13.2 % (11.7-14.2); RDW Standard Deviation 45.1 fL (35.1-46.3); Red Blood Cell Count 4.06 M/mm3 (3.80-5.20); White Blood Cell Count 4.89 K/mm3 (4.00-11.30)
[2020-09-11 06:12] LABS: Anion Gap 4 mmol/L (6-16); Blood Urea Nitrogen 21 mg/dL (8-24); Bun/Creatinine Ratio 31.5 (12.0-20.0); CO2, Blood 25 mmol/L (21-32); Calcium, Blood 8.4 mg/dL (8.5-10.1); Chloride, Blood 107 mmol/L (98-108); Creatinine, Blood 0.67 mg/dL (0.40-1.00); Glomerular Filtration Rate >60 (60-); Glucose, Blood 100 mg/dL (70-99); Potassium, Blood 3.9 mmol/L (3.5-5.5); Sodium, Blood 136 mmol/L (136-145)
--- NOTE | 2020-09-11 06:31 | NUR ---
BLADDER SCAN 124mL AND 21:00 VOID OF 100 mL NOC SHIFT. POST DC TOBIAS. FLUID RESTRICTION OF 1,000 mL DRINKING <200 mL DAY SHIFT.
--- NOTE | 2020-09-11 08:06 | NUR ---
FULL EDU STRESS TEST REPORT PROVIDED JONNY LANDERS INCLUDING PT PUT ON 4L NC FOR SOB DURING TEST. PT SITTING UP DRINKING COFFEE WITH CALL LIGHT IN REACH.
[2020-09-11 12:25] LABS: Influenza A, PCR NEGATIVE (NEGATIVE); Influenza B, PCR NEGATIVE (NEGATIVE); Resp Syncytial Virus, PCR NEGATIVE (NEGATIVE); SARS-Cov-2 (COVID-19) PCR, MMC NEGATIVE (NEGATIVE)
[2020-09-11] MEDS ORDERED: FURO20 PO (17:18)
[2020-09-11] MEDS ORDERED: SPIR25 PO (17:18)
[2020-09-11] MEDS ORDERED: ARTIFICIAL TEAR15 M2 BOTHEYES (17:19)
--- NOTE | 2020-09-11 17:39 | NUR ---
SUMMARY: Admit: 09/07/20 09/11/20 met with Ivana s/w son Raudel by telephone. Discharge home to [facility]. Covid neg test completed today, faxed to [facility]. Ordered home health from Leonora s/w Desirae to confirm referral. Son Raudel to pick her up, stop at pharmacy, return her to [facility]. Family is allowed to tranport during Covid. Expecting ean call and 1 week follow up appointent with [facility] ean dr. rice
--- NOTE | 2020-09-11 18:21 | NUR ---
SHIFT SUMMARY PT A/O X4; PLEASANT AND COOPERATIVE WITH CARE. SHE UNDERWENT A STRESS TEST THIS AM AND EXPERIENCED AN EPISODE OF DYSPNEA DUE TO THE MEDICATION ADMINISTERED THE TEST. BRIEFLY PUT ON O2, BUT TITRATED BACK DOWN TO ROOM AIR. PT ON 1000 ML FLUID RESTRICTION. RADIO COMMUNICATION COORDINATOR CLEARED THE PT FOR DISCHARGE AND NO ADJUSTMENTS TO CARDIAC MEDICATIONS WERE MADE. PT TO FOLLOW UP WITH [facility] AND CARDIOLOGY. PT TO FOLLOW UP WITH CARDIOLOGY ON SEP 15. MEDICATIONS FAXED TO [facility] AND INFORMATION FAXED TO [facility]. SON AT THE BEDSIDE AND SON DROVE PATIENT BACK TO HER PLACE OF RESIDENCE. IV DC'D WNL AND COVID TEST NEGATIVE.
== END 2020-09-11 17:56 | disposition home health service (06) | DRG 291 ==
LOC: ER 20:53 → ERHOLD 22:57 → MEDS 22:57
PROVIDERS: Hospitalist; Internal Medicine; Physician Assistant; ADMIT Family Medicine
PROC: 5A09457 Assistance with Respiratory Ventilation, 24-96 Consecutive Hours, Continuous Positive Airway Pressure (ICD-10-PCS; principal; 2020-09-07)
DX: I11.0 Hypertensive heart disease with heart failure (principal); I50.31 Acute diastolic (congestive) heart failure; J96.01 Acute respiratory failure with hypoxia; J81.0 Acute pulmonary edema; I24.8 Other forms of acute ischemic heart disease; Z66 Do not resuscitate; Z20.822 Contact with and (suspected) exposure to COVID-19; I35.0 Nonrheumatic aortic (valve) stenosis; I16.0 Hypertensive urgency; Z85.038 Personal history of other malignant neoplasm of large intestine; T44.7X1A Poisoning by beta-adrenoreceptor antagonists, accidental (unintentional), initial encounter; T44.7X5A Adverse effect of beta-adrenoreceptor antagonists, initial encounter; I05.0 Rheumatic mitral stenosis; D64.9 Anemia, unspecified
CPT/HCPCS: 0241U; 36415; 36600; 51702; 71045; 78452; 80047; 80048; 80053; 81001; 82803; 83735; 83880; 84100; 84484; 85014; 85025; 93005; 93010; 93017; 94660; 94760; 94761; 94762; 96372-59; 96374; 97110; 97116; 97161; 97165; 97530; 97535; 99285-25; A9270; A9500; C8929; J0706; J1650; J1940; J2785; Q9957

== ENCOUNTER 2020-09-14 01:13 | Inpatient (IN) | payer MEDICARE, OTHER ==
[~2020-09-14] VITALS: Ht 154.9 cm; Wt 65.0 kg
[~2020-09-14 01:13] MED LIST changes: +ARTIFICIAL TEAR15 M2 BOTHEYES; +FURO20 PO; +METO25 PO; +SPIR25 PO
[2020-09-14 01:58] LABS: BASOPHILS ABSOLUTE AUTO 0.04 K/mm3 (0.00-0.23); BASOPHILS PERCENT AUTO 1 % (0-2); EOSINOPHILS ABSOLUTE AUTO 0.31 K/mm3 (0.00-0.68); EOSINOPHILS PERCENT AUTO 4 % (0-6); Hematocrit 38.2 % (33.0-51.0); Hemoglobin 12.6 g/dL (11.5-16.0); IMMATURE GRAN ABSOLUTE AUTO 0.04 K/mm3 (0.00-0.10); IMMATURE GRAN PERCENT AUTO 1 % (0-1); LYMPHOCYTES ABSOLUTE AUTO 1.57 K/mm3 (0.84-5.20); LYMPHOCYTES PERCENT AUTO 20 % (21-46); MONOCYTES ABSOLUTE AUTO 0.58 K/mm3 (0.16-1.47); MONOCYTES PERCENT AUTO 8 % (4-13); Mean Corpuscular HGB 30.7 pg (26.0-34.0); Mean Corpuscular Volume 93 fL (80-100); Mean Platelet Volume 10.4 fL (9.1-12.4); NEUTROPHILS ABSOLUTE AUTO 5.22 K/mm3 (1.96-9.15); NEUTROPHILS PERCENT AUTO 67 % (41-73); Platelet Count 263 K/mm3 (150-400); RDW Coefficient Variation 13.3 % (11.7-14.2); RDW Standard Deviation 45.1 fL (35.1-46.3); White Blood Cell Count 7.76 K/mm3 (4.00-11.30)
[2020-09-14 02:05] LABS: Alanine Aminotransfer (ALT/SGP 56 U/L (12-78); Albumin, Blood 3.4 g/dL (3.4-5.0); Alk Phos 61 U/L (50-136); Anion Gap 8 mmol/L (6-16); Aspartate Aminotrans (AST/SGOT 44 U/L (12-37); Bilirubin, Total 0.5 mg/dL (0.1-1.0); Blood Urea Nitrogen 21 mg/dL (8-24); Bun/Creatinine Ratio 30.3 (12.0-20.0); CO2, Blood 21 mmol/L (21-32); Calcium, Blood 8.4 mg/dL (8.5-10.1); Chloride, Blood 105 mmol/L (98-108); Creatinine, Blood 0.69 mg/dL (0.40-1.00); Globulin, Blood 3.3 g/dL (2.2-4.0); Glomerular Filtration Rate >60 (60-); Glucose, Blood 118 mg/dL (70-99); Magnesium, Blood 1.7 mg/dL (1.6-2.4); Potassium, Blood 3.6 mmol/L (3.5-5.5); Sodium, Blood 134 mmol/L (136-145); Total Protein, Blood 6.7 g/dL (6.4-8.2)
[2020-09-14 02:44] LABS: Troponin I 0.098 ng/mL (0.000-0.040)
[2020-09-14] MEDS ORDERED: METO25ER PO (03:59)
[2020-09-14] MEDS ORDERED: CENTRUM SILVER1 EAC2 PO (04:00)
[2020-09-14] MEDS ORDERED: VIT1CAPS12 PO (04:01)
[2020-09-14] MEDS ORDERED: QUESTRAN LIGHT PO (04:03)
[2020-09-14] MEDS ORDERED: SYSTANE BALANCE10 ML BOTHEYES (04:06)
[2020-09-14 06:34] LABS: Troponin I 0.14 ng/mL (0.000-0.040)
[2020-09-14] MEDS ORDERED: AMLODIPINE BESYL5 MG PO (11:50)
[2020-09-14] MEDS ORDERED: OLMESARTAN MEDO40 MG PO (11:51)
[2020-09-14 14:14] LABS: Troponin I 0.054 ng/mL (0.000-0.040)
--- NOTE | 2020-09-14 19:41 | NUR ---
SHIFT SUMMARY PT ARRIVED IN PCU THIS AFTERNOON, VS STABLE, LUNGS CLEAR IN UPPER LOBES AND SLIGHTLY DIM IN THE LOWER LOBES. PT REPORTS HAVING A CARDIOLOGY APPOINTMENT OUTPATIENT TOMORROW AND THEREFORE A CARDIOLOGY CONSULT HAS BEEN MADE. DR. PEDRAZA WAS CONTACTED THIS EVENING, HE REPORTS KNOWNING THIS PT VERY WELL AND HAS EXPLAINED TO THE PT AND THE FAMILY THAT HE DOES NOT BELIEVE HER SOB IS CARDIAC RELATED, THE STRESS TEST WAS NEGATIVE, THE PT DOES NOT SHOW SIGNS OF FLUID OVERLOAD IN REGARDS TO SEVERE EDEMA, CRACKLES IN THE LUNGS AND OFTEN BECOMES HYPOTENSIVE WITH DIURETICS. DR. PEDRAZA'S RECOMMENDATION IN THE PAST HAS BEEN FOR THE PT TO BE ON A LOW DOSE OF A BETA EDITH OR CALCIUM CHANNEL EDITH TO MANAGE HR, BP AND AORTIC STENOSIS AND LEFT VALVE NARROWING AND TO STOP USE OF DIURETICS. DR. PEDRAZA SUGGESTED THAT CARDIOLOGY BE CONTACTED IN THE MORNING TO ESSENTIALLY GIVE A SECOND OPINION BASED ON HIS NOTES. PT IS IN BED RESTING AT THIS TIME
[2020-09-15 04:57] LABS: BASOPHILS ABSOLUTE AUTO 0.02 K/mm3 (0.00-0.23); BASOPHILS PERCENT AUTO 0 % (0-2); EOSINOPHILS ABSOLUTE AUTO 0.03 K/mm3 (0.00-0.68); EOSINOPHILS PERCENT AUTO 0 % (0-6); Hematocrit 32.2 % (33.0-51.0); Hemoglobin 10.7 g/dL (11.5-16.0); IMMATURE GRAN ABSOLUTE AUTO 0.03 K/mm3 (0.00-0.10); IMMATURE GRAN PERCENT AUTO 0 % (0-1); LYMPHOCYTES ABSOLUTE AUTO 1.29 K/mm3 (0.84-5.20); LYMPHOCYTES PERCENT AUTO 15 % (21-46); MONOCYTES ABSOLUTE AUTO 0.64 K/mm3 (0.16-1.47); MONOCYTES PERCENT AUTO 7 % (4-13); Mean Corpuscular HGB 31.3 pg (26.0-34.0); Mean Corpuscular HGB Conc 33.2 g/dL (31.5-36.5); Mean Corpuscular Volume 94 fL (80-100); Mean Platelet Volume 9.9 fL (9.1-12.4); NEUTROPHILS ABSOLUTE AUTO 6.86 K/mm3 (1.96-9.15); NEUTROPHILS PERCENT AUTO 78 % (41-73); Platelet Count 258 K/mm3 (150-400); RDW Coefficient Variation 13.6 % (11.7-14.2); Red Blood Cell Count 3.42 M/mm3 (3.80-5.20); White Blood Cell Count 8.87 K/mm3 (4.00-11.30)
[2020-09-15 05:15] LABS: Alanine Aminotransfer (ALT/SGP 43 U/L (12-78); Albumin/Globulin Ratio 1.1 (0.8-1.8); Alk Phos 51 U/L (50-136); Anion Gap 6 mmol/L (6-16); Aspartate Aminotrans (AST/SGOT 26 U/L (12-37); Bilirubin, Total 0.4 mg/dL (0.1-1.0); Blood Urea Nitrogen 26 mg/dL (8-24); Bun/Creatinine Ratio 31.9 (12.0-20.0); CO2, Blood 24 mmol/L (21-32); Calcium, Blood 8.3 mg/dL (8.5-10.1); Chloride, Blood 109 mmol/L (98-108); Creatinine, Blood 0.82 mg/dL (0.40-1.00); Globulin, Blood 2.7 g/dL (2.2-4.0); Glomerular Filtration Rate >60 (60-); Glucose, Blood 91 mg/dL (70-99); Potassium, Blood 4.2 mmol/L (3.5-5.5); Sodium, Blood 139 mmol/L (136-145); Total Protein, Blood 5.7 g/dL (6.4-8.2)
--- NOTE | 2020-09-15 06:18 | NUR ---
shift summary pt rested well through night. able to make needs known. sats >90% on 1lnc - pt states she needs to remain on o2 per md. pt also confused on medication list , and plan of care. xanax x1 for panic attack at bedtime. tele nsr. no c/o chest pain. stand by assist to bathroom. call light within reach, bed in lowest position. will continue to monitor.
[2020-09-15] MEDS ORDERED: KLOR-CON 1010 ME1 PO (15:59)
--- NOTE | 2020-09-15 17:36 | NUR ---
Brief visit this evening. Pt resting in bed upon arrival. Pt denies pain at this time. Pt does report dyspnea with exertion, including speaking. Pt's daughter at bedside. Pt reports developing anxiety when dyspnea increases. Provided gentle distraction technique to assist with anxiety and deep breathing exercises. Pt's dinner has arrived and this RN ended visit. Palliative Care will remain available for supportive visits.
--- NOTE | 2020-09-15 19:56 | NUR ---
SHIFT SUMMARY PT A&Ox2; PT FORGETFUL AT TIMES. SBA TO BSC. PT REPORTS HEADACHE THIS AM, ADMINISTERED TYLENOL PER ORDERS WITH POSITIVE RESULTS. PT HAVING INTERMITTENT SOB DURING SHIFT, ANXIOUS AT TIMES, PT GIVEN XANAX WITH POSITIVE RESULTS. THIS EVENING, PT AUDIBLY COARSE/WET IN UPPER RESP; LS COARSE/DIMINISHED, RESP EFFORT INCREASED AND O2 DEMAND INCREASED; NANCY WHITTING TO ROOM, PT PLACED ON BIPAP FOR EFFORT. BP ELEVATED; NANCY NOTIIFED. PT DENIES NAUSEA, DIZZINESS.NO OTHER ACUTE CHANGES NOTED. REPORT GIVEN TO ONCOMING RN.
[2020-09-16 04:09] LABS: BASOPHILS ABSOLUTE AUTO 0.02 K/mm3 (0.00-0.23); BASOPHILS PERCENT AUTO 0 % (0-2); EOSINOPHILS ABSOLUTE AUTO 0.03 K/mm3 (0.00-0.68); EOSINOPHILS PERCENT AUTO 0 % (0-6); Hematocrit 35.3 % (33.0-51.0); Hemoglobin 11.8 g/dL (11.5-16.0); IMMATURE GRAN ABSOLUTE AUTO 0.04 K/mm3 (0.00-0.10); IMMATURE GRAN PERCENT AUTO 0 % (0-1); LYMPHOCYTES ABSOLUTE AUTO 1.44 K/mm3 (0.84-5.20); LYMPHOCYTES PERCENT AUTO 13 % (21-46); MONOCYTES ABSOLUTE AUTO 0.66 K/mm3 (0.16-1.47); MONOCYTES PERCENT AUTO 6 % (4-13); Mean Corpuscular HGB 31.6 pg (26.0-34.0); Mean Corpuscular HGB Conc 33.4 g/dL (31.5-36.5); Mean Corpuscular Volume 94 fL (80-100); Mean Platelet Volume 10.3 fL (9.1-12.4); NEUTROPHILS ABSOLUTE AUTO 8.64 K/mm3 (1.96-9.15); NEUTROPHILS PERCENT AUTO 80 % (41-73); Platelet Count 254 K/mm3 (150-400); RDW Coefficient Variation 13.6 % (11.7-14.2); Red Blood Cell Count 3.74 M/mm3 (3.80-5.20); White Blood Cell Count 10.83 K/mm3 (4.00-11.30)
[2020-09-16 04:39] LABS: Anion Gap 5 mmol/L (6-16); Blood Urea Nitrogen 26 mg/dL (8-24); Bun/Creatinine Ratio 37.7 (12.0-20.0); CO2, Blood 25 mmol/L (21-32); Calcium, Blood 8.3 mg/dL (8.5-10.1); Chloride, Blood 105 mmol/L (98-108); Creatinine, Blood 0.69 mg/dL (0.40-1.00); Glomerular Filtration Rate >60 (60-); Glucose, Blood 97 mg/dL (70-99); Potassium, Blood 4.7 mmol/L (3.5-5.5); Sodium, Blood 135 mmol/L (136-145)
--- NOTE | 2020-09-16 05:35 | NUR ---
SHIFT SUMMARY PT RESTED MUCH MORE COMFORTABLY AFTER SHIFT CHANGE. ALERT AND ORIENTED - ABLE OT MAKE NEEDS KNOWN. ONCE PT PLACED ON BIPAP, PT EXPLAINED SHE FELT LIKE SHE WAS ABLE TO BREATHE MUCH BETTER. HER O2, HR, AND BP ALL IMPROVED WITH THE BIPAP. PRN BP MEDS GIVEN - SEE EMAR, AND ANXIETY MEDS WELL - SEE EMAR. PT CXR SHOWED WORSENING PULM EDEMA, SM PLEURAL EFFUSIONS AND PULM VASC CONGESTION. PT REMAINED NPO AFTER MIDNIGHT. URINE SAMPLE COLLECTED AND SENT TO LAB - PENDING RESULTS. NO C/O PAIN. VOIDING TO BEDPAN. NO BM. CALL LIGHT WITHIN REACH, BED IN LOWEST POSITION. WILL CONTINUE TO MONITOR.
--- NOTE | 2020-09-16 15:18 | NUR ---
CARE COORDINATION REFERRAL - ADMIT: 09/14/20 DISCHARGE: DX: CHF EXACERBATION CC: KWILCOX ADMIT: 09/07/20 DISCHARGE:09/11/20 DX: ACUTE RESP. FAILURE W/ HYPOXIA ADMIT: 09/02/20 DISCHARGE:09/04/20 DX: SOB, ACUTE DIASTOLIC HEART DISEASE ALICIA CALL: [facility] RESIDENCE: [facility] CAREGIVER: DORINDA GUERRA AND GWEN SOTERO AND DARIAN TRAORE, CHILD, BALAJI BEY, CHILD, ALBAN GUERRA, CHILD, DX: AORTIC STENOSIS, HTN, CERVICAL RADICULOPATHY, SEE LIST DME: WHEEL [facility] CCM:REFERRAL- 04/02/20 HOME HEALTH: [facility] - 2015, 2017 ORDERED PT OT WITH [facility] 09/11/20, S/W SUMMER TO CONFIRM REFERRAL. SUMMARY: 09/16/20- PER CHART REVIEW, PT HAD CONSULT WITH CARDIOLOGY TODAY. A RENAL ULTRASOUND WAS ORDERED BY DR. SEGAL. O2 AT 4L. NO EST ETA FOR DISCHARGE. -CLIFFORD
--- NOTE | 2020-09-16 18:19 | NUR ---
Brief supportive visit. Pt resting in bed upon arrival. Daughter at bedside. Offered therapeutic listening, validated concerns and answered questions. Reviewed plan of care. Palliative Care will remain available
--- NOTE | 2020-09-16 19:02 | NUR ---
SHIFT SUMMARY PT A&Ox2; FORGETFUL AT TIMES. LITTLE SHELL TRIBE. PT SBA TO BSC. PT DENIES PAIN, NAUSEA AND DIZZINESS. THIS AM PT ON BIPAP; PT TRANSITIONED TO 5L O2 VIA NC FOR BREAKFAST AND O2 TITRATED DOWN T/O SHIFT TO 2L O2 VIA NC; THIS EVENING PT STATES SHE IS HAVING TROUBLE BREATHING ASKING VACCINE CUSTOMER REPRESENTATIVE TO TURN UP O2; RN TO ROOM SPO2 92-94%; BIPAP PLACED FOR SOB/EFFORT. VSS T/O SHIFT. NO OTHER ACUTE CHANGES NOTED DURING SHIFT. REPORT GIVEN TO ONCOMING RN.
[2020-09-17 04:28] LABS: BASOPHILS ABSOLUTE AUTO 0.03 K/mm3 (0.00-0.23); BASOPHILS PERCENT AUTO 0 % (0-2); EOSINOPHILS ABSOLUTE AUTO 0.21 K/mm3 (0.00-0.68); EOSINOPHILS PERCENT AUTO 2 % (0-6); Hematocrit 36.3 % (33.0-51.0); Hemoglobin 11.8 g/dL (11.5-16.0); IMMATURE GRAN ABSOLUTE AUTO 0.03 K/mm3 (0.00-0.10); IMMATURE GRAN PERCENT AUTO 0 % (0-1); LYMPHOCYTES ABSOLUTE AUTO 1.99 K/mm3 (0.84-5.20); LYMPHOCYTES PERCENT AUTO 23 % (21-46); MONOCYTES ABSOLUTE AUTO 0.71 K/mm3 (0.16-1.47); MONOCYTES PERCENT AUTO 8 % (4-13); Mean Corpuscular HGB 30.9 pg (26.0-34.0); Mean Corpuscular HGB Conc 32.5 g/dL (31.5-36.5); Mean Corpuscular Volume 95 fL (80-100); Mean Platelet Volume 10.2 fL (9.1-12.4); NEUTROPHILS PERCENT AUTO 66 % (41-73); Platelet Count 262 K/mm3 (150-400); RDW Coefficient Variation 13.8 % (11.7-14.2); RDW Standard Deviation 47.7 fL (35.1-46.3); Red Blood Cell Count 3.82 M/mm3 (3.80-5.20); White Blood Cell Count 8.67 K/mm3 (4.00-11.30)
[2020-09-17 04:57] LABS: Anion Gap 5 mmol/L (6-16); Blood Urea Nitrogen 22 mg/dL (8-24); CO2, Blood 24 mmol/L (21-32); Calcium, Blood 8.5 mg/dL (8.5-10.1); Chloride, Blood 105 mmol/L (98-108); Creatinine, Blood 0.65 mg/dL (0.40-1.00); Glomerular Filtration Rate >60 (60-); Glucose, Blood 97 mg/dL (70-99); Potassium, Blood 4.4 mmol/L (3.5-5.5); Sodium, Blood 134 mmol/L (136-145)
--- NOTE | 2020-09-17 05:20 | NUR ---
SHIFT SUMMARY PT RESTED WELL THROUGH NIGHT. ALERT AND ORIENTED - ABLE TO MAKE NEEDS KNOWN. ANXIOUS OFTEN - SEE EMAR. TELE NSR/ST. SATS >90% ON 2LNC OR WHILE ON BIPAP. PT C/O NOT BEING ABLE TO "BREATHE NORMALLY". HER SATS HOLD WELL WHILE SHES C/O THIS, BUT SHE GETS ANXIOUS AND WORKED UP, WHICH MAKES HER BREATHING EVEN WORSE. LOTS OF THERAPEUTIC CONVERSATION NEEDED, UTILIZE RELAXATION TECHNIQUES. PT USING BEDPAN TO VOID. NO C/O PAIN. DRESSING ON RUE POWERGLIDE CHANGED, FLUSHES WELL, BUT DOES NOT DRAW. AM LABS RELATIVELY NORMAL. VSS. CALL LIGHT WITHIN REACH, BED IN LOWEST POSITION. WILL CONTINUE TO MONITOR.
--- NOTE | 2020-09-17 07:51 | NUR ---
pt laying in bed awake a/ox3, pleasant and cooperative with care, follows commands well, denies pain, just sob, lungs are clear in upper sabillon, a bit dim in right base, dim in left base, currently on 2 liters 02 via n/c, used bipap 60% of the night last night per report, reports she did have a productive cough this am and that was the first time, hrr, running sr per monitor, see strip, does have a loud murmur, no edema noted, ppp+1, cap refill <3sec, vs stable, afebrile, iv site is clear and patent, has a power glide to mckayla site is clear and patent, btx4, abd round soft nontender, voids without diff, skin c/w/d, yris rand, call light in reach.
--- NOTE | 2020-09-17 12:52 | NUR ---
09/17/20- per chart review, no d/c today. Family has discussed either resuming home health vs Hospice with [facility]. -lubna
--- NOTE | 2020-09-17 13:43 | NUR ---
Received call from Pt's son expressing concerns regarding current condition. Son requests this RN to review Dr Young's not from today. Son is under the impression Pt's condition is worse today and states thinking Pt is end stage. Reviewed chart including MD notes from today. Called and spoke with Dr Young. Discussed case including family concerns. Pt would benefit from further evaluations. Pt resting in bed and denies pain at this time. Mild dyspnea reported due to recent ambulation from bathroom and back. Answered questions and offered therapeutic listening. Pt reports being in agreement with current plan of care and further recommendations and states "as long as it's not aggressive". Pt expresses appreciation of visit. Palliative Care will remain available for supportive visits.
--- NOTE | 2020-09-17 19:12 | NUR ---
PT HAS BEEN UP FOR HER MEALS, AND AMBULATING INTO THE BATHROOM WITH STANDBY ASSIST, FAMILY MEMBER IN TO SEE HER THIS EVENING, PT IS CONCERNED ABOUT TAKING ANYTHING ELSE FOR ANXIETY SHE FEELS A BIT SPACY TODAY, CALLED AND IS OK TO HOLD TO CIERRA, WILL REVIEW MEDS TOMORROW AM. NO FURTHER CHANGES THIS SHIFT. CALL LIGHT IN REACH.
[2020-09-18 04:11] LABS: BASOPHILS ABSOLUTE AUTO 0.04 K/mm3 (0.00-0.23); BASOPHILS PERCENT AUTO 1 % (0-2); EOSINOPHILS ABSOLUTE AUTO 0.25 K/mm3 (0.00-0.68); EOSINOPHILS PERCENT AUTO 4 % (0-6); Hematocrit 35.7 % (33.0-51.0); Hemoglobin 11.8 g/dL (11.5-16.0); IMMATURE GRAN ABSOLUTE AUTO 0.04 K/mm3 (0.00-0.10); IMMATURE GRAN PERCENT AUTO 1 % (0-1); LYMPHOCYTES ABSOLUTE AUTO 1.41 K/mm3 (0.84-5.20); LYMPHOCYTES PERCENT AUTO 21 % (21-46); MONOCYTES ABSOLUTE AUTO 0.57 K/mm3 (0.16-1.47); MONOCYTES PERCENT AUTO 9 % (4-13); Mean Corpuscular HGB 31.1 pg (26.0-34.0); Mean Corpuscular HGB Conc 33.1 g/dL (31.5-36.5); Mean Corpuscular Volume 94 fL (80-100); Mean Platelet Volume 10.3 fL (9.1-12.4); NEUTROPHILS ABSOLUTE AUTO 4.33 K/mm3 (1.96-9.15); NEUTROPHILS PERCENT AUTO 65 % (41-73); Platelet Count 263 K/mm3 (150-400); RDW Coefficient Variation 13.6 % (11.7-14.2); RDW Standard Deviation 46.7 fL (35.1-46.3); White Blood Cell Count 6.64 K/mm3 (4.00-11.30)
[2020-09-18 04:32] LABS: Anion Gap 6 mmol/L (6-16); Blood Urea Nitrogen 17 mg/dL (8-24); Bun/Creatinine Ratio 30.3 (12.0-20.0); CO2, Blood 25 mmol/L (21-32); Calcium, Blood 8.6 mg/dL (8.5-10.1); Chloride, Blood 100 mmol/L (98-108); Creatinine, Blood 0.56 mg/dL (0.40-1.00); Glomerular Filtration Rate >60 (60-); Glucose, Blood 111 mg/dL (70-99); Potassium, Blood 4.2 mmol/L (3.5-5.5); Sodium, Blood 131 mmol/L (136-145)
--- NOTE | 2020-09-18 04:37 | NUR ---
BUSINESS OBJECTS SUMMARY PT ANXIOUS THROUGHOUT THE SHIFT STATING THAT SHE FELT SOB BUT WAS EASILY REDIRECTABLE, PT GIVEN XANAX FOR ANXIETY W LITTLE RELEIF. PT HAD O2 SATS 91-94 ON 2L NC. VS STABLE W SOME MILD TACHYPNEA. TELE NSR IN THE 60'S, WCTM.
--- NOTE | 2020-09-18 08:00 | NUR ---
pt laying in bed, states she had a rough night, denies pain, states she is sob, lungs are clear in upper sabillon, dim in bases, resp even and unlabored, no cough noted, hrr, loud murmur noted, tele in place, running sr per monitor, see strip, no edema noted, ppp+1, cap refill <3sec, vs stable, afebrile, iv is power glide to mckayla, site is clear and patent, btx4, abd flat soft nontender, voids without diff, skin c/w/d, maew, yris, wants to eat breakfast in bed this am, call light in reach, am care done.
--- NOTE | 2020-09-18 12:16 | NUR ---
assisted pt to the bathroom, she ambulated very well with a walker, got her situated in a chair for lunch, call light in reach.
--- NOTE | 2020-09-18 18:46 | NUR ---
pt doing ok, no acute changes today. Dr. Hathaway in and reviewed medications with her and her son, did give another small dose of lasix. no further needs or changes. call light in reach.
--- NOTE | 2020-09-18 19:10 | NUR ---
ASSUMED CARE RECEIVED BEDSIDE REPORT FROM BROOKE COX RN; PT WATCHING TV; DENIES CHEST PAIN; VSS; O2 SATS >93 ON 4L NC; NO DISTRESS NOTED; CALL LIGHT IN REACH; BED IN LOWEST POSITION.
--- NOTE | 2020-09-19 04:53 | NUR ---
SHIFT SUMMARY PT A&O X 4; VSS; DENIES CHEST PAIN; SINUS MICHELLE NOTED ON TELE W/ HR 50'S; O2 SATS >93 ON 3L NC; REFUSED BIPAP; C/O SOB WHEN SATS REMAIN UNCHANGED; PT COACHED ON BREATHING / RELAXATION TECHNIQUES; UPON ENTERING ROOM PT STATES SHE WAS HAVING TROUBLE BREATHING, HOWEVER PT WAS OBSERVED RESTING PEACEFULLY; NO ACUTE CHANGES THIS SHIFT; UNABLE TO DRAW FROM POWERGLIDE FOR AM LABS, FLUSHES WELL; MAKES NEEDS KNOWN; CALL LIGHT IN REACH; BED IN LOWEST POSITION; WILL CONTINUE TO MONITOR CLOSELY UNTIL HAND OFF TO DAY SHIFT RN.
[2020-09-19 05:44] LABS: Anion Gap 7 mmol/L (6-16); Blood Urea Nitrogen 16 mg/dL (8-24); CO2, Blood 26 mmol/L (21-32); Calcium, Blood 8.4 mg/dL (8.5-10.1); Chloride, Blood 97 mmol/L (98-108); Creatinine, Blood 0.57 mg/dL (0.40-1.00); Glomerular Filtration Rate >60 (60-); Glucose, Blood 102 mg/dL (70-99); Potassium, Blood 4.2 mmol/L (3.5-5.5); Sodium, Blood 130 mmol/L (136-145)
[2020-09-19 12:10] LABS: METANEPHRINE, PL 78.6 pg/mL (0.0-88.0); NORMETANEPHRINE, PL 179.4 pg/mL (0.0-191.8)
--- NOTE | 2020-09-19 18:51 | NUR ---
SHIFT SUMMARY PT A&Ox3; ANXIOUS BUT COOPERATIVE WITH CARE. PT RESTING IN BED, UP IN CHAIR FOR MEALS. SBA TO BATHROOM. PT REPORT FEELING ANXIOUS; MEDICATED x1 WITH XANAX THIS AFTERNOON. PT DENIES PAIN, DIZZINESS AND NAUSEA. PT REPORTS SOB, ON 3L O2 VIA NC; SPO2 >92% T/O SHIFT. VSS. NO OTHER ACUTE CHANGES NOTED DURING SHIFT. WILL CONTINUE TO MONITOR UNITL REPORT GIVEN TO ONCOMING RN.
--- NOTE | 2020-09-19 19:20 | NUR ---
ASSUMED CARE RECEIVED BEDSIDER REPORT FROM JONNY FARMER; PT A&O X 3-4; VSS; DENIES CHEST PAIN; O2 SATS >93 ON 3L NC; PT STATES SHE HAD A BUSY DAY SITTING UP IN CHAIR AND AMBULATING TO BATHROOM; NO DISTRESS NOTED; SITTING IN BED WATCHING TV; CALL LIGHT IN REACH; BED IN LOWEST POSITION W/ BED ALARM ON.
[2020-09-20 04:20] LABS: Anion Gap 6 mmol/L (6-16); Blood Urea Nitrogen 16 mg/dL (8-24); Bun/Creatinine Ratio 30.4 (12.0-20.0); CO2, Blood 26 mmol/L (21-32); Calcium, Blood 8.4 mg/dL (8.5-10.1); Chloride, Blood 97 mmol/L (98-108); Creatinine, Blood 0.53 mg/dL (0.40-1.00); Glomerular Filtration Rate >60 (60-); Glucose, Blood 97 mg/dL (70-99); Potassium, Blood 4.3 mmol/L (3.5-5.5); Sodium, Blood 129 mmol/L (136-145)
--- NOTE | 2020-09-20 06:35 | NUR ---
SHIFT SUMMARY PT A&O X 3-4; VSS; DENIES CHEST PAIN; NSR NOTED ON TELE; O2 SATS >93 ON 3L NC; PT ASSISTED TO BSC X 3 W/ MINIMAL SOB; ANXIETY SEEMS IMPROVED FROM PREVIOUS SHIFT AND PT MORE CONVERSIVE; PT SLEPT SEVERAL HOURS IN BETWEEN INTERVENTIONS; FLUTTER VALVE & IS ENCOURAGED; PT EDUCATION PROVIDED ON RELAXATION AND BREATHING TECHNIQUES; PT HAD MED FORMED BM; CALL LIGHT IN REACH; BED IN LOWEST POSITION; WILL CONTINUE TO MONITOR CLOSELY UNTIL HAND OFF TO DAY SHIFT RN.
--- NOTE | 2020-09-20 17:47 | NUR ---
SHIFT SUMMARY PT A&Ox3; ANXIOUS AT TIMES BUT COOPERATIVE WITH CARE. PT SBA TO BATHROOM T/O SHIFT. PT REPORTS FEELING ANXIOUS AT TIMES; DENIES NEED FOR MEDICATIONS. PT DENIES PAIN, CHEST PAIN, NAUSEA AND DIZZINESS. PT SOB WITH EXERTION, PT ON 3L O2 VIA NC, TITRATED T/O SHIFT TO 1L O2 SPO2 >90%. VSS. NO OTHER ACUTE ACUTE CHANGES NOTED DURING SIHFT. WILL CONTINUE TO MONITOR UNTIL REPORT GIVEN TO ONCOMING RN.
--- NOTE | 2020-09-20 19:10 | NUR ---
ASSUMED CARE RECEIVED BEDSIDE REPORT FROM JONNY FARMER; PT A&O X 3-4; VSS; O2 SATS >93 ON 1L NC; PT WATCHING TV; NO DISTRESS NOTED; PT DENIES NEEDS AT THIS TIME; CALL LIGHT IN REACH; BED IN LOWEST POSITION.
[2020-09-21 03:49] LABS: Anion Gap 6 mmol/L (6-16); Blood Urea Nitrogen 16 mg/dL (8-24); Bun/Creatinine Ratio 28.8 (12.0-20.0); CO2, Blood 26 mmol/L (21-32); Calcium, Blood 8.5 mg/dL (8.5-10.1); Chloride, Blood 94 mmol/L (98-108); Creatinine, Blood 0.56 mg/dL (0.40-1.00); Glomerular Filtration Rate >60 (60-); Glucose, Blood 102 mg/dL (70-99); Potassium, Blood 4.7 mmol/L (3.5-5.5); Sodium, Blood 126 mmol/L (136-145)
--- NOTE | 2020-09-21 06:12 | NUR ---
SHIFT SUMMARY PT A&O X 3-4; PLEASANT & COMPLIANT W/ CARE; VSS; DENIES CHEST PAIN; O2 SATS >93 ON 1.5L NC; UP TO BSC A FEW TIMES THIS SHIFT, SLIGHT SOB W/ EXERSION; PT CALL APPROPRIATELY; SLEPT SEVERAL HOURS IN BETWEEN INTERVENTIONS; CALL LIGHT IN REACH; BED IN LOWEST POSITION; WILL CONTINUE TO MONITOR CLOSELY UNTIL HAND OFF TO DAY SHIFT RN.
--- NOTE | 2020-09-21 17:29 | NUR ---
SHIFT SUMMARY PT ALERT AND ORIENTED. ANXIOUS AT TIMES. VS STABLE. O2 SATS REMAIN ABOVE 90% ON 3L NC. BP STABLE. PT REPORTED SOME DYSPNEA THIS AFTERNOON AND A BREATHING TX AND MEDICATION HELPED. PT REPORTED PAIN IN HER BACK AND LIDOCAINE PATCH APPLIED. PLAN FOR PT TO DISCHARGE BACK TO [facility] TOMORROW. PT STATES SHE WOULD LIKE TO TRANSITION TO HOSPICE [place]. HOSPICE REFERRAL PLACED. WILL CONTINUE TO MONITOR AND REPORT TO ONCOMING RN.
[2020-09-21 20:02] LABS: Source, Urine Clean Catch
[2020-09-21 20:13] LABS: Bilirubin, Urine Neg (Neg); Blood, Urine 3+ (Neg); Glucose Qualitative, Urine Neg (Neg); Ketones, Urine Neg (Neg); Leukocyte Esterase, Urine 2+ (Neg); Nitrite, Urine Neg (Neg); Protein, Urine Neg (Neg); Urobilinogen, Urine NORM (Normal)
[2020-09-21 20:19] LABS: Appearance, Urine Clear (Clear); Color, Urine Yellow (P-Yellow)
[2020-09-21 20:20] LABS: Bacteria Mod /hpf; Red Blood Cells, Urine 0-2 /hpf (0-2); Squamous Epithelial Cells Few /hpf (Few)
--- NOTE | 2020-09-21 20:34 | NUR ---
ASSUMED CARE FROM DAY SHIFT RN PT WAS AWAKE AND USING THE BSC DURING SHIFT REPORT. VS STABLE WITH THE EXCEPTION OF INCREASED O2 NEEDS, PT CURRENTLY ON 3.5L O2 VIA NC TO MAINTAIN SAT AT 92%. PT COMPLETED A BREATHING TREATMENT BUT STATES THAT IT GETS HARDER TO BREATH AT NIGHT, RT ANN OFFERED CPAP TO THE PT WHO DECLINED AT THIS TIME BUT STATED MAYBE LATER TONIGHT; WILL MONITOR THE NEED FOR MORE OXYGEN OR ASSISTANCE AND DIFFICULTLY BREATHING. PT IS ANXIOUS AT TIMES REGARDING HER HEALTH STATUS AND THE DIFFICULTLY BREATHING; MEDICATED PER EMAR. PT IS AWAITING DISCHARGE BACK TO [facility] MOSTLY LIKELY TOMORROW; HOME O2 STUDY TO BE COMPLETED PRIOR TO DISCHARGE. PT RESTING IN BED NOW WATCHING TV
--- NOTE | 2020-09-21 21:38 | NUR ---
INCREASED OXYGEN NEED DURING EVENING ASSESSMENT AT THE START OF SHIFT IT WAS NOTED BY RN SAVANNA AND RT ANN THAT THE PT HAD COARSE LUNG SOUNDS AND DIM IN THE BASES, HER RR WAS INCREASED AND SHE WAS ON 5L O2 VIA NC TO MAINTAIN SATS AT 92%. PT RECEIVED HER EVENING MEDICATIONS INCLUDING HER BREATHING TREATMENT. AT APPROXIMATELY 2114 PT BEGAN VERY LABORED BREATHING. HER RR INCREASED TO 24, BP BECAME ELEVATED TO 182/92 AND O2 SAT WAS AT 89% ON THE 5L, RT WAS CALLED AND THE PT WAS PLACED ON BIPAP SETTINGS 07/07 WITH 6L BLEED IN. LUNG SOUNDS NOW SOUND VERY WET WITH CRACKLES. PT DOES HAVE SOME BLE EDEMA +1 AND VERY OBVIOUS INCREASED LABORED BREATHING. RN IS AWAITING A CALL BACK FROM [facility].
--- NOTE | 2020-09-22 04:35 | NUR ---
SHIFT SUMMARY PT HAS BEEN VERY ANXIOUS ON AND OFF THROUGHOUT THE NIGHT, FEELING LIKE SHE CAN'T GET A FULL BREATH. PT HAS BEEN PLACED ON BIPAP TONIGHT HER RESPIRATORY STATUS CHANGED EARLY IN THE SHIFT; THE LUNGS HAD CRACKLES AND PT WAS HYPERTENSIVE. PRN APRESOLINE AND 1 TIME LASIX WAS ADMINISTERED. PT NOW SOUNDS COARSE AND BP HAS STABLIZED. PT HAS BEEN ABLE TO USE THE BSC WITH 1 PERSON ASSISTANCE TONIGHT. PT HAS A POWERGLIDE IN THE RIGHT UPPER ARM, IT FLUSHES WELL HOWEVER WILL NOT DRAW BLOOD. PT IS NOW RESTING IN BED
[2020-09-22 05:17] LABS: Anion Gap 7 mmol/L (6-16); Blood Urea Nitrogen 15 mg/dL (8-24); Bun/Creatinine Ratio 29.3 (12.0-20.0); CO2, Blood 26 mmol/L (21-32); Calcium, Blood 8.6 mg/dL (8.5-10.1); Chloride, Blood 92 mmol/L (98-108); Creatinine, Blood 0.51 mg/dL (0.40-1.00); Glomerular Filtration Rate >60 (60-); Glucose, Blood 101 mg/dL (70-99); Potassium, Blood 4.3 mmol/L (3.5-5.5); Sodium, Blood 125 mmol/L (136-145)
--- NOTE | 2020-09-22 12:23 | NUR ---
ADMIT: 09/14/20 DISCHARGE: DX: CHF exacerbation CC: [email or web address] ADMIT: 09/07/20 DISCHARGE:09/11/20 DX: ACUTE RESP. FAILURE W/ HYPOXIA ADMIT: 09/02/20 DISCHARGE:09/04/20 DX: SOB, ACUTE DIASTOLIC HEART DISEASE ALICIA CALL: [facility]- on Hospice RESIDENCE: [facility] CAREGIVER: DORINDA GUERRA AND GWEN SOTERO AND DARIAN TRAORE, CHILD, BALAJI BEY, CHILD, ALBAN MARI, CHILD, DX: AORTIC STENOSIS, HTN, CERVICAL RADICULOPATHY, SEE LIST DME: WHEEL [facility]AIR CCM:REFERRAL- 04/02/20 HOME HEALTH: [facility] - Hospice to start 09/24/20 SUMMARY: Admit: 09/14/20 09/22/20 Patient would like home on Hospice, chose [facility], [facility] can start on . [facility] at [facility] would like her to discharge back the day Hospice is starting. Kera will fax Hospice packet with signed order to [facility] today. Kera will arrange transport with her son or medical transport.
[2020-09-22 12:29] LABS: BASOPHILS ABSOLUTE AUTO 0.01 K/mm3 (0.00-0.23); BASOPHILS PERCENT AUTO 0 % (0-2); EOSINOPHILS ABSOLUTE AUTO 0.14 K/mm3 (0.00-0.68); EOSINOPHILS PERCENT AUTO 3 % (0-6); Hemoglobin 12.5 g/dL (11.5-16.0); IMMATURE GRAN ABSOLUTE AUTO 0.04 K/mm3 (0.00-0.10); IMMATURE GRAN PERCENT AUTO 1 % (0-1); LYMPHOCYTES ABSOLUTE AUTO 0.79 K/mm3 (0.84-5.20); LYMPHOCYTES PERCENT AUTO 15 % (21-46); MONOCYTES ABSOLUTE AUTO 0.73 K/mm3 (0.16-1.47); MONOCYTES PERCENT AUTO 14 % (4-13); Mean Corpuscular HGB 30.6 pg (26.0-34.0); Mean Corpuscular HGB Conc 33.8 g/dL (31.5-36.5); Mean Corpuscular Volume 91 fL (80-100); Mean Platelet Volume 10.1 fL (9.1-12.4); NEUTROPHILS ABSOLUTE AUTO 3.63 K/mm3 (1.96-9.15); NEUTROPHILS PERCENT AUTO 68 % (41-73); Platelet Count 257 K/mm3 (150-400); RDW Coefficient Variation 13.2 % (11.7-14.2); RDW Standard Deviation 43.6 fL (35.1-46.3); Red Blood Cell Count 4.09 M/mm3 (3.80-5.20); White Blood Cell Count 5.34 K/mm3 (4.00-11.30)
--- NOTE | 2020-09-22 12:29 | NUR ---
Transport to be by medical, wheelchair or gurney. per Son. cp
--- NOTE | 2020-09-22 14:56 | NUR ---
09/22/20- DR. SULLIVAN SIGNED HOSPICE PAPERWORK. FAXED ORDER ALONG WITH LIST OF DME PT WILL NEED PRIOR TO D[facility]. TRANSPORTATION WILL BE SET UP FOR PT ON MONDAY BACK HOME. -CLIFFORD
--- NOTE | 2020-09-22 16:39 | NUR ---
09/22/20- spoke with pt and daughter about hospice. Daughter would like to speak with hospice agency, reached out to [facility] asking if I could pass on phone numbers to them. Daughter, Vickie, . Son, Raudel [phone]. Pt is not scheduled to d/c until , when she starts services with [facility]. -lubna
--- NOTE | 2020-09-22 18:43 | NUR ---
PT SUMMARY: NO ACUTE CHANGE FOR THE SHIFT, PT TO [place] THURS WITH HOSPICE REFERRAL. VITALS STABLE PT REMAINS ON 3L OF O2 SATS ABOVE 95%, AFEBRILE. PT DENIES CHEST PAIN/PRESSURE BUT IS C/O OF FEELING TIRED AND SLEEPY THIS AM, LASIX STARTED FOR THE SHIFT WITH EXTRA DOSE GIVEN PT STATED SHE FELT A LITTLE BETTER AND AWAKE THAN THIS AM, SODIUM LEVEL THIS AM WAS AT [address] ON FREE WATER RESTRICTION 1500MLS, PT IS AWARE AND COMPLIANT. PT HAS BEEN COOPERATIVE FOR THE SHIFT WAS UP AND AMBULATING VIA WALKER TO TRANSFER TO RECLINER CHAIR, GOOD APPETITE. HAS LOOSE BM X2 D/T COLON CA. PT CURRENTLY BACK IN BED AT THIS TIME RESTING. NO OTHER ISSUES ENCOUNTERED, WILL MONITOR UNTIL END OF SHIFT
--- NOTE | 2020-09-23 05:50 | NUR ---
SHIFT SUMMARY PT IS ALERT AND ORIENTED. VITALS STABLE THROUGHOUT THE NIGHT. SATS OF >92% ON 2L NC. DENIES CHEST PAIN OR SOB. NO ACUTE CHANGES. TELE IN PLACE READING SR IN THE 60'S. POWEGLIDE WNL PLACE AND FLUSHING. TRANSFERS TO BSC WITH ONE ASSIST. PT IS [place].
[2020-09-23 05:55] LABS: Anion Gap 6 mmol/L (6-16); Blood Urea Nitrogen 19 mg/dL (8-24); Bun/Creatinine Ratio 29.7 (12.0-20.0); CO2, Blood 27 mmol/L (21-32); Calcium, Blood 8.4 mg/dL (8.5-10.1); Chloride, Blood 90 mmol/L (98-108); Creatinine, Blood 0.64 mg/dL (0.40-1.00); Glomerular Filtration Rate >60 (60-); Glucose, Blood 94 mg/dL (70-99); Potassium, Blood 4.4 mmol/L (3.5-5.5); Sodium, Blood 123 mmol/L (136-145)
--- NOTE | 2020-09-23 16:00 | NUR ---
09/23/20- Spoke with [facility], they are set to start pt on hospice services tomorrow. They requested that pt be discharged before noon so that they can see pt same day at [facility]. They will need d/c note and medication list faxed to them in the morning. Spoke with daughter and encouraged her to reach out to Elif about the care plan for her mom once she is home. Provided her the number for the hospice department. Informed them that pt will be picked up at 1030 tomorrow and transported back home. Spoke with son, Raudel, and updated him with the above information. -lubna
--- NOTE | 2020-09-23 18:03 | NUR ---
PT SUMMARY: PT PLAN TO [place] TOMORROW WITH HOSPICE ([facility]) REFERRAL, DOUBLE SURFACE OPERATOR GENESIS DISCUSSED PLAN WITH THE DAUGHTER THIS AFTERNOON. NO ACUTE CHANGED FOR THE SHIFT, DIARRHEA EPISODES DUE TO COLON CA, IMMODIUM INCREASED TO 4MG FOR TODAY. PT WAS ABLE TO WORK WITH THERAPY, STILL FEELING SLEEPY/DROWSY THIS AM PT STATED PROZAC IS POSSIBLY WHAT'S CAUSING IT IT GOES AWAY LATER DURING THE DAY. NO OTHER ISSUES REPORTED, PT HAS BEEN GETTING UP IN THE CHAIR FOR MEALS SBA VIA WALKER. USES [employer] FOR TOILETING, ABLE TO MAKE NEEDS KNOWN, CALL LIGHTS IN REACH WILL MONITOR
--- NOTE | 2020-09-23 19:08 | NUR ---
ASSUMED CARE RECEIVED BEDSIDE REPORT FROM KYUNG RN; PT A&O X 3-4; DENIES CHEST PAIN; VSS; O2 SATS >93 ON 1.5L NC; PT STATES SHE IS EXPERIENCING DIARRHEA AND WOULD LIKE IMMODIUM; DENIES OTHER NEEDS; NO DISTRESS NOTED; CALL LIGHT IN REACH; BED IN LOWEST POSITION.
[2020-09-24 05:45] LABS: Anion Gap 6 mmol/L (6-16); Blood Urea Nitrogen 20 mg/dL (8-24); Bun/Creatinine Ratio 29.8 (12.0-20.0); CO2, Blood 28 mmol/L (21-32); Calcium, Blood 8.4 mg/dL (8.5-10.1); Chloride, Blood 90 mmol/L (98-108); Creatinine, Blood 0.67 mg/dL (0.40-1.00); Glomerular Filtration Rate >60 (60-); Glucose, Blood 93 mg/dL (70-99); Potassium, Blood 4.5 mmol/L (3.5-5.5); Sodium, Blood 124 mmol/L (136-145)
--- NOTE | 2020-09-24 06:19 | NUR ---
SHIFT SUMMARY PT A&O X 3-4; VSS; DENIES CHEST PAIN; NSR NOTED ON TELE; O2 SATS >93 ON 1L NC; DIM IN BASES; SBA TO BSC; PT CALLS APPROPRIATELY; SLEPT SEVERAL HOURS IN BETWEEN INTERVENTIONS; CALL LIGHT IN REACH; BED IN LOWEST POSITION; WILL CONTINUE TO MONITOR CLOSELY UNTIL HAND OFF TO DAY SHIFT RN.
--- NOTE | 2020-09-24 09:05 | NUR ---
DR. SULLIVAN AT BEDSIDE. DISCUSSED POC. PLAN IS FOR DISCHARGE TO [facility] TODAY WITH HOSPICE. PATIENT ON 1L O2 VIA NC. ORDERS RECEIVED TO INCREASE IMMODIUM DOSE FOR DIARRHEA, DR. SULLIVAN STATES THIS IS RELATED TO PATIENT'S HX COLON CANCER.
[2020-09-24] MEDS ORDERED: ACET325 PO (10:31)
[2020-09-24] MEDS ORDERED: FLUO10 PO (10:32)
[2020-09-24] MEDS ORDERED: DILTIAZEM PO (10:32)
[2020-09-24] MEDS ORDERED: FLUT1DIS2 INH (10:33)
[2020-09-24] MEDS ORDERED: IPRAT-ALBUT 0.5-3 ML INH (10:34)
[2020-09-24] MEDS ORDERED: LIDOCAINE1 EAC1 TOP (10:35)
[2020-09-24] MEDS ORDERED: LOPE2C PO (10:35)
[2020-09-24 11:10] LABS: Influenza A, PCR NEGATIVE (NEGATIVE); Influenza B, PCR NEGATIVE (NEGATIVE); Resp Syncytial Virus, PCR NEGATIVE (NEGATIVE); SARS-Cov-2 (COVID-19) PCR, MMC NEGATIVE (NEGATIVE)
--- NOTE | 2020-09-24 12:12 | NUR ---
DISCHARGE: PATIENT DISCHARGED HOME WITH [facility] TO [facility] VIA [facility] TRANSPORT. [facility] CAME TO TRANSPORT THE PATIENT VIA WHEELCHAIR. [facility] BORROWED ONE OF [employer] O2 TANKS FOR TRANSPORT. PATIENT ON 1L O2. [facility] ACCORDION MAKER CONFIRMED THAT [facility] SET UP OXYGEN AT [facility]. PAPERS SENT TO [facility] BY RETREAD SUPERVISOR HECTOR OLIVEROS. [facility] RN TO MEET WITH PATIENT AT [facility] AT 1200. REVIEWED DISCHARGE INSTRUCTIONS AND DISCHARGE MEDICATIONS WITH PATIENT AND HER FAMILY, NO FURTHER QUESTIONS UPON DISCHARGE. POWERGLIDE DISCONTINUED.
== END 2020-09-24 11:46 | disposition hospice, home (50) | DRG 291 ==
LOC: ER 01:13 → PCU 03:08 → ERHOLD 03:08 → PCU 16:30
PROVIDERS: Emergency Medicine; Family Medicine; Internal Medicine; Internal Medicine Cardiovascular Disease; ADMIT Internal Medicine
DX: I11.0 Hypertensive heart disease with heart failure (principal); J96.01 Acute respiratory failure with hypoxia; E87.1 Hypo-osmolality and hyponatremia; I50.33 Acute on chronic diastolic (congestive) heart failure; F41.9 Anxiety disorder, unspecified; Z66 Do not resuscitate; I08.0 Rheumatic disorders of both mitral and aortic valves; Z20.822 Contact with and (suspected) exposure to COVID-19; M81.0 Age-related osteoporosis without current pathological fracture; K52.9 Noninfective gastroenteritis and colitis, unspecified; E66.3 Overweight; Z68.27 Body mass index [BMI] 27.0-27.9, adult; D64.9 Anemia, unspecified; Z85.038 Personal history of other malignant neoplasm of large intestine
CPT/HCPCS: 0241U; 36415; 71045; 71046; 71260; 80048; 80053; 81001; 82384; 82533; 82550; 82570; 83735; 83835; 83880; 84145; 84443; 84484; 85025; 85379; 86850; 86900; 86901; 87086; 93005; 93010; 93975; 94640; 94660; 94667; 94760; 94762; 96372-59; 96374; 96375; 97110; 97116; 97162; 97165; 97530; 99285-25; A9270; C1751; J0360; J0456; J1650; J1940; J2060; J2930; J7050; Q2038; Q9967